=== PATIENT | male | born 1950 | race African-American/Black ===

== ENCOUNTER 2021-09-02 12:56 | Emergency (ER) | payer OTHER ==
--- OUTSIDE RECORDS SUMMARY | 2021-09-02 13:00 | XMS REPORT | Continuity of Care Document ---
:1950 Author Organization [facility] t Address [address] [place] [address] Care Team Providers Name Role Phone CRISTHIAN Attending Clinician Unavailable WANG Attending Clinician Unavailable Beverley RODRIGUEZ Attending Clinician Unavailable SHALOM Attending Clinician Unavailable GEMMA VALLADARES Attending Clinician Unavailable EMILY RIVER Attending Clinician Unavailable NEFTALI WOOD Attending Clinician Unavailable PETRA Admitting Clinician Unavailable SHALOM Admitting Clinician Unavailable GRECIA Admitting Clinician Unavailable LORIN BEASLEY Admitting Clinician Unavailable Payers Payer Name Policy Type Policy Number Effective Date Expiration Date S natalie WELLCARE/WELLCARE [id number] 2021 [facility]00 WELLCARE [facility] [id number] 2021 00:00:00 MEDICAID [place] [id number] 2020 00:00:00 Problems Condition Condition Condition Status Onset Resolution Last Treating Co mments Source Name Details Category Date Date Treatment Clinician Date Left Left Problem Active Central ventricula ventricula Ca re r r Communi hypertroph hypertroph ty y y [facility] Non Non Problem Active [facility] compliance compliance Ca re with with Communi medical medical ty treatment treatment [facility] History of History of Problem Active C entral stroke stroke Care with with Communi residual residual ty deficit deficit Health Center Chest pain Chest pain Problem Active C entral Care [facility] Tobacco Tobacco Problem Active [facility] Abuse Abuse Care Counseling Counseling Co mmuni ty [facility] GERD GERD Problem Active Central (gastroeso (gastroeso Ca re phageal phageal Communi reflux reflux ty disease) disease) [facility] Hypothyroi Hypothyroi Problem Active C entral dism dism Care [facility] Essential Essential Problem Active Shani tral hypertensi hypertensi Ca re on on [facility] Neuropathy Neuropathy Problem Active C entral Care [facility] Diabetes Diabetes Problem Active Centr al type 2, type 2, Care controlled [facility] of History of Problem Active C entral hyperlipid hyperlipid Ca re emia emia [facility] Iron Iron Problem Active Central deficiency deficiency Ca re anemia anemia [facility] Constipati Constipati Problem Active C entral on on Care [facility] Loss of Loss of Problem Active Central appetite appetite Care [facility] Allergies, Adverse Reactions, Alerts Allergy Allergy Status Severity Reaction(s) Onset Inactive Treating Comm ents Source Name Type Date Date Clinician NO KNOWN Allergy Active [facility] ALLERGIE S Medications Ordered Filled Start Stop Current Ordering Indication Dosage Frequency Signature Comments Components Source Medication Medication Date Date Medication? Clinician (SIG) Name Name Docusate Docusate Yes Mercedes 1 capsule Central Sodium Sodium 2- Anthony as needed Care 00:00: [facility] Ferrous Ferrous Yes Mercedes 1 tablet C entral Sulfate Sulfate -12 Anthony Care 00:00: [facility] Bromfed DM Bromfed DM 2017-08 Yes Mercedes 10 ml as Central 2-19 Anthony needed Care 00:00: [facility] Medrol Medrol 2017-08 Yes Mercedes as Central (Robert) (Robert) 2-19 Anthony directed Care 00:00: on pack [facility] Metformin Metformin 2017-08 Yes Mercedes 1 tablet Central HCl HCl 1-26 Anthony with meals Care 00:00: [facility] Gabapentin Gabapentin 2017-08 Yes Mercedes as Central 1-20 Anthony directed Care 00:00: [facility] Nicoderm CQ Nicoderm CQ 2017-08 Yes Mercedes 1 patch to Central 1-19 Anthony skin Care 00:00: [facility] Lisinopril- Lisinopril- Yes Mercedes 1 tablet Central Hydrochloro Hydrochloro Anthony Care thiazide thiazide [facility] Aspir-81 Aspir Yes Mercedes 1 tablet C entral Anthony Care [facility] Doc-Q-Lace Doc-Q-Lace Yes Merecdes not C entral Anthony defined Care [facility] Omeprazole Omeprazole Yes Mercedes 1 capsule [facility] Simvastatin Simvastatin Yes Mercedes 1 [facility] Meloxicam Meloxicam Yes Mercedes 1 tablet [facility] Xanax Xanax Yes Mercedes 1 tablet [facility] Levothyroxi Levothyroxi Yes Mercedes 1 Central ne Sodium ne Sodium Anthony Car e [facility] Procedures This patient has no known procedures. Encounters Start End Encounter Admission Attending Care Care Encounter Source Date/Time Date/Time Type Type Clinicians Facility Department ID 2021-07-30 Outpatient CRISTHIAN [facility] [id number] [place] 01:04:37 [facility] 2021-08-10 2021-08-11 Inpatient ER WANG, [facility] [id number] [facility] 20:29:00 16:35:00 MAUROALICIAG 2020-10-20 2020-10-21 Inpatient E SHALOM BL MED [id number] [facility]BL 19:30:00 16:20:00 [facility] 2020-05-05 2020-05-05 Emergency E BLAINE, [facility] [id number] [facility] 11:23:00 23:57:00 [facility] 2019-12-21 2019-12-22 Emergency E PERICO, HH [facility] [id number] [facility] 18:16:00 03:45:00 YESSICA 2019-02-28 2019-02-28 Outpatient [facility] [id number] [place] 08:24:00 08:24:00 Care Care Care Integrate Integrated [facility] 2019-02-09 2019-02-09 [facility] [id number] [facility] 10:55:00 10:55:00 2018-10-12 2018-10-12 Outpatient [facility] [id number] [place] 08:20:00 08:20:00 Care Care Care Integrate Integrated Com [facility] 2018-09-09 2018-09-09 Outpatient [facility] [id number] [place] 13:00:00 13:00:00 Care Care Care Integrate Integrated Com [facility] 2018-09-03 2018-09-03 Outpatient [facility] [id number] [facility] 10:00:00 10:00:00 Care Care [facility] 2018-08-28 2018-08-28 Outpatient [facility] [id number] Central 10:40:00 10:40:00 Care Care [facility] 2018-08-19 2018-08-19 Outpatient [facility] [id number] Central 13:40:00 13:40:00 Care Care Care Integrate Integrated [facility] 2018-08-04 2018-08-04 Outpatient [facility] Central [id number] Central 08:40:00 08:40:00 Care Care Care [facility]ate Integrated [facility] 2018-07-12 2018-07-12 Outpatient [place] Central [id number] Central 08:40:00 08:40:00 Care Care [facility] Integrated [facility] 2018-07-06 2018-07-06 Outpatient [place] Central [id number] [place] 11:20:00 11:20:00 Care Care Care Integrate Integrated [facility] 2018-07-05 2018-07-05 Outpatient [place] Central [id number] Central 09:17:00 09:17:00 Care Care Care Integrate Integrated [facility] 2018-07-05 2018-07-05 Outpatient [place] Central [id number] Central 08:20:00 08:20:00 Care Care [facility] Integrated [facility] 2018-06-28 2018-06-28 Outpatient [place] Central [id number] Central 09:00:00 09:00:00 Care Care [facility] Results Test Description Test Time Test Comments Results Result Comments Source HEPATIC FUNCTION PANEL 2021-08-11 09:55:19 Test Item Value Reference Range Interpretation Comme nts TOTAL PROTEIN (BEAKER) (test code = 770) 7.4 gm/dL 6.0-8.3 ALBUMIN (BEAKER) (test code = 1145) 3.5 g/dL 3.5-5.0 BILIRUBIN TOTAL (BEAKER) (test code = 377) 0.7 mg/dL 0.2-1.2 BILIRUBIN DIRECT (BEAKER) (test code = 706) 0.4 mg/dL 0.1-0.5 ALKALINE PHOSPHATASE (BEAKER) (test code = 346) 62 U/L 40-150 AST (SGOT) (BEAKER) (test code = 353) 12 U/L 5-34 ALT (SGPT) (BEAKER) (test code = 347) < U/L 6-55 L [facility] ID - DBHIGH SENSITIVITY TROPONIN [id number] 09:51:42 Test Item Value Reference Range Interpretation Comments HIGH SENSITIVITY 7 pg/ml See_Comment [Automated message] TROPONIN I (test code = The system which [id number]) generated this result transmitted ref erence range: <=35. Th e reference range was not used to interpr et this result as normal/abnormal . [facility] ID - DBThe CRADLE PLACER STAT High Sensitivity Troponin-I results should be used in conjunctionwith other diagnostic information such as ECG, clinical observations and information, and patient symptoms to aid in the diagnosis of SD.BASIC METABOLIC [id number] 09:45:58 Test Item Value Reference Range Interpretation Comments SODIUM (BEAKER) 135 meq/L 136-145 L (test code = 381) POTASSIUM (BEAKER) 4.0 meq/L 3.5-5.1 (test code = 379) CHLORIDE (BEAKER) 107 meq/L 98-107 (test code = 382) CO2 (BEAKER) (test 21 meq/L 22-29 L code = 355) BLOOD UREA NITROGEN 8 mg/dL 7-21 (BEAKER) (test code = 354) CREATININE (BEAKER) 0.91 mg/dL 0.57-1.25 (test code = 358) GLUCOSE RANDOM 141 mg/dL 70-105 H (BEAKER) (test code = 652) CALCIUM (BEAKER) 8.8 mg/dL 8.4-10.2 (test code = 697) EGFR (BEAKER) (test 100 mL/min/1.73 ESTIM ATED GFR IS code = 1092) sq m NOT ACCURATE CREATININE CLEARANCE IN PREDICTING GLOMERULAR FILTRATION RATE . ESTIMATED GFR I S NOT APPLICABLE FOR DIALYSIS PATIEN TS. [facility] Techn[facility] ID - DBPROTHROMBIN TIME/[id number] 09:42:44 Test Item Value Reference Range Interpretation Comments PROTIME (BEAKER) 14.9 seconds 11.9-14.2 H (test code = 759) INR (BEAKER) (test 1.19 See_Comment [Automat ed message] code = 370) The system [employer] generated this result transmitted ref erence range: <=5.90. The reference range was not used to int erpret this result as normal/abnormal . RECOMMENDED COUMADIN/WARFARIN INR THERAPY RANGESSTANDARD DOSE: 2.0 - 3.0 Includes: PROPHYLAXIS forvenous thrombosis, systemic embolization; TREATMENT for venous thrombosis and/or pulmonary embolus.HIGH RISK: Target INR is 2.5-3.5 for patients with mechanical heart valves.CBC W/PLT COUNT & AUTO DIFFERENTIAL 2021-08-11 09:41:41 Test Item Value Reference Range Interpretation Comments WHITE BLOOD CELL COUNT (BEAKER) 7.8 K/ L 3.5-10.5 (test code = 775) RED BLOOD CELL COUNT (BEAKER) 3.84 M/ L 4.63-6.08 L (test code = 761) HEMOGLOBIN (BEAKER) (test code = 7.4 GM/DL 13.7-17.5 L 410) HEMATOCRIT (BEAKER) (test code = 27.2 % 40.1-51.0 L 411) MEAN CORPUSCULAR VOLUME (BEAKER) 70.8 fL 79.0-92.2 L (test code = 753) MEAN CORPUSCULAR HEMOGLOBIN 19.3 pg 25.7-32.2 L (BEAKER) (test code = 751) MEAN CORPUSCULAR HEMOGLOBIN CONC 27.2 GM/DL 32.3-36.5 L (BEAKER) (test code = 752) RED CELL DISTRIBUTION WIDTH 25.4 % 11.6-14.4 H (BEAKER) (test code = 412) PLATELET COUNT (BEAKER) (test 418 K/CU MM 150-450 code = 756) MEAN PLATELET VOLUME (BEAKER) 8.9 fL 9.4-12.4 L (test code = 754) NUCLEATED RED BLOOD CELLS 0 /100 WBC 0-0 (BEAKER) (test code = 413) NEUTROPHILS RELATIVE PERCENT 60 % (BEAKER) (test code = 429) LYMPHOCYTES RELATIVE PERCENT 25 % (BEAKER) (test code = 430) MONOCYTES RELATIVE PERCENT 7 % (BEAKER) (test code = 431) EOSINOPHILS RELATIVE PERCENT 7 % (BEAKER) (test code = 432) BASOPHILS RELATIVE PERCENT 1 % (BEAKER) (test code = 437) NEUTROPHILS ABSOLUTE COUNT 4.67 K/ L 1.78-5.38 (BEAKER) (test code = 670) LYMPHOCYTES ABSOLUTE COUNT 1.98 K/ L 1.32-3.57 (BEAKER) (test code = 414) MONOCYTES ABSOLUTE COUNT (BEAKER) 0.56 K/ L 0.30-0.82 (test code = 415) EOSINOPHILS ABSOLUTE COUNT 0.51 K/ L 0.04-0.54 (BEAKER) (test code = 416) BASOPHILS ABSOLUTE COUNT (BEAKER) 0.07 K/ L 0.01-0.08 (test code = 417) IMMATURE GRANULOCYTES-RELATIVE 0 % 0-1 PERCENT (BEAKER) (test code = 2801) IRON, TIBC, % SAT. (WITHOUT FERRITIN)2021-08-10 23:28:47 Test Item Value Reference Range Interpretation Comments IRON (BEAKER) (test code = 547) 31.0 ug/dL 40.0-160.0 L TOTAL IRON BINDING CAPACITY 388 ug/dL 250-450 (BEAKER) (test code = 769) IRON % SATURATION (2) (BEAKER) 8 % 20-55 L (test code = 2590) [facility] ID - DBHIGH SENSITIVITY TROPONIN [id number] 23:05:24 Test Item Value Reference Range Interpretation Comments HIGH SENSITIVITY 5 pg/ml See_Comment [Automated message] TROPONIN I (test code = The system which [id number]) generated this result transmitted ref erence range: <=35. Th e reference range was not used to interpr et this result as normal/abnormal . [facility] ID - DBThe CRADLE PLACER STAT High Sensitivity Troponin-I results should be used in conjunctionwith other diagnostic information such as ECG, clinical observations and information, and patient symptoms to aid in the diagnosis of SD.HEMOGLOBIN AND [id number] 22:41:03 Test Item Value Reference Range Interpretation Comments HEMOGLOBIN (BEAKER) (test code = 6.2 GM/DL 13.7-17.5 L 410) HEMATOCRIT (BEAKER) (test code = 22.9 % 40.1-51.0 L 411) [facility] ID - [id number]-GLUCOSE [id number] 08:32:00 Test Item Value Reference Range Interpretation Comments POC-GLUCOSE METER 106 mg/dL 70-110 : TESTED A T [facility] 6720 (BEAKER) (test code = CE [address] [place], 1538) [address]: [facility] Technicians/Techni andrés ID = [id number] for ARCHANA COLORADO [id number] 07:02:00 Test Item Value Reference Range Interpretation Comments PHOSPHORUS (BEAKER) (test code = 2.5 mg/dL 2.3-4.7 604) [id number] 07:02:00 Test Item Value Reference Range Interpretation Comments MAGNESIUM (BEAKER) (test code = 1.9 mg/dL 1.6-2.6 627) BASIC METABOLIC [id number] 07:02:00 Test Item Value Reference Range Interpretation Comments SODIUM (BEAKER) 134 meq/L 136-145 L (test code = 381) POTASSIUM (BEAKER) 4.0 meq/L 3.5-5.1 (test code = 379) CHLORIDE (BEAKER) 104 meq/L 98-107 (test code = 382) CO2 (BEAKER) (test 24 meq/L 22-29 code = 355) BLOOD UREA NITROGEN 16 mg/dL 7-21 (BEAKER) (test code = 354) CREATININE (BEAKER) 1.05 mg/dL 0.57-1.25 (test code = 358) GLUCOSE RANDOM 118 mg/dL 70-105 H (BEAKER) (test code = 652) CALCIUM (BEAKER) 9.2 mg/dL 8.4-10.2 (test code = 697) EGFR (BEAKER) (test 85 mL/min/1.73 ESTIMA GAY GFR IS code = 1092) sq m NOT ACCURATE CREATININE CLEARANCE IN PREDICTING GLOMERULAR FILTRATION RATE . ESTIMATED GFR I S NOT APPLICABLE FOR DIALYSIS PATIEN TS. CBC W/PLT COUNT & AUTO [id number] 05:18:00 Test Item Value Reference Range Interpretation Comments WHITE BLOOD CELL COUNT (BEAKER) 8.0 K/ L 3.5-10.5 (test code = 775) RED BLOOD CELL COUNT (BEAKER) 4.68 M/ L 4.63-6.08 (test code = 761) HEMOGLOBIN (BEAKER) (test code = 9.1 GM/DL 13.7-17.5 L 410) HEMATOCRIT (BEAKER) (test code = 31.8 % 40.1-51.0 L 411) MEAN CORPUSCULAR VOLUME (BEAKER) 67.9 fL 79.0-92.2 L (test code = 753) MEAN CORPUSCULAR HEMOGLOBIN 19.4 pg 25.7-32.2 L (BEAKER) (test code = 751) MEAN CORPUSCULAR HEMOGLOBIN CONC 28.6 GM/DL 32.3-36.5 L (BEAKER) (test code = 752) RED CELL DISTRIBUTION WIDTH 25.4 % 11.6-14.4 H (BEAKER) (test code = 412) PLATELET COUNT (BEAKER) (test 552 K/CU MM 150-450 H code = 756) MEAN PLATELET VOLUME (BEAKER) 8.7 fL 9.4-12.4 L (test code = 754) NUCLEATED RED BLOOD CELLS 0 /100 WBC 0-0 (BEAKER) (test code = 413) NEUTROPHILS RELATIVE PERCENT 41 % (BEAKER) (test code = 429) LYMPHOCYTES RELATIVE PERCENT 36 % (BEAKER) (test code = 430) MONOCYTES RELATIVE PERCENT 9 % (BEAKER) (test code = 431) EOSINOPHILS RELATIVE PERCENT 12 % (BEAKER) (test code = 432) BASOPHILS RELATIVE PERCENT 1 % (BEAKER) (test code = 437) NEUTROPHILS ABSOLUTE COUNT 3.28 K/ L 1.78-5.38 (BEAKER) (test code = 670) LYMPHOCYTES ABSOLUTE COUNT 2.87 K/ L 1.32-3.57 (BEAKER) (test code = 414) MONOCYTES ABSOLUTE COUNT (BEAKER) 0.69 K/ L 0.30-0.82 (test code = 415) EOSINOPHILS ABSOLUTE COUNT 0.99 K/ L 0.04-0.54 H (BEAKER) (test code = 416) BASOPHILS ABSOLUTE COUNT (BEAKER) 0.11 K/ L 0.01-0.08 H (test code = 417) IMMATURE GRANULOCYTES-RELATIVE 0 % 0-1 PERCENT (BEAKER) (test code = 2801) POCT-GLUCOSE [id number] 22:13:00 Test Item Value Reference Range Interpretation Comments POC-GLUCOSE METER 129 mg/dL 70-110 H : TESTED A T [facility] 6720 (BEAKER) (test code = CE Brown [place], 1538) [address]: [facility] Technicians/Techni andrés ID = [id number] for Katie Palacios POCT-GLUCOSE [id number] 12:48:00 Test Item Value Reference Range Interpretation Comments POC-GLUCOSE METER 135 mg/dL 70-110 H : [facility] (BE[facility]ER) (test code = CE Brown [facility], 1538) 012[address]: Medical Laboratory Technicians/Techni andrés ID = [id number] for NOEL MCFARLANE HEMOGLOBIN [id number] 12:15:00 Test Item Value Reference Range Interpretation Comments HEMOGLOBIN A1C (BEAKER) (test code = 6.0 % 4.3-6.1 368) TROPONIN [id number] 07:22:00 Test Item Value Reference Range Interpretation Comments TROPONIN I (BEAKER) (test code = 397) < ng/mL 0.00-0.03 Troponin I (TnI) levels must be interpreted in the context of the presenting symptoms and the clinical findings. Elevated TnI levels indicate myocardial damage, but are not specific for ischemic heart disease. Elevated TnI levels are seen in patients with other cardiac conditions (including myocarditis and congestive heart failure), and slight TnI elevations occur in patients with other conditions, including sepsis, renal failure, acidosis, acute neurological disease, and persistent tachyarrhythmia.[id number] 07:16:00 Test Item Value Reference Range Interpretation Comments PHOSPHORUS (BEAKER) (test code = 2.8 mg/dL 2.3-4.7 604) [id number] 07:16:00 Test Item Value Reference Range Interpretation Comments MAGNESIUM (BEAKER) (test code = 1.9 mg/dL 1.6-2.6 627) BASIC METABOLIC [id number] 07:16:00 Test Item Value Reference Range Interpretation Comments SODIUM (BEAKER) 135 meq/L 136-145 L (test code = 381) POTASSIUM (BEAKER) 4.1 meq/L 3.5-5.1 (test code = 379) CHLORIDE (BEAKER) 104 meq/L 98-107 (test code = 382) CO2 (BEAKER) (test 26 meq/L 22-29 code = 355) BLOOD UREA NITROGEN 18 mg/dL 7-21 (BEAKER) (test code = 354) CREATININE (BEAKER) 1.04 mg/dL 0.57-1.25 (test code = 358) GLUCOSE RANDOM 97 mg/dL 70-105 (BEAKER) (test code = 652) CALCIUM (BEAKER) 9.1 mg/dL 8.4-10.2 (test code = 697) EGFR (BEAKER) (test 86 mL/min/1.73 ESTIMA GAY GFR IS code = 1092) sq m NOT ACCURATE CREATININE CLEARANCE IN PREDICTING GLOMERULAR FILTRATION RATE . ESTIMATED GFR I S NOT APPLICABLE FOR DIALYSIS PATIEN TS. LIPID [id number] 07:16:00 Test Item Value Reference Range Interpretation Comments TRIGLYCERIDES (BEAKER) (test code = 66 mg/dL 540) CHOLESTEROL (BEAKER) (test code = 105 mg/dL 631) HDL CHOLESTEROL (BEAKER) (test code 36 mg/dL = 976) LDL CHOLESTEROL CALCULATED (BEAKER) 56 mg/dL (test code = 633) Triglyceride Reference Range: Low Risk <150 Borderline 150-199 High Risk 200-499 Very High Risk >=500Cholesterol Reference Range: Low Risk <200 Borderline 200-239 High Risk >240HDL Cholesterol Reference Range: Low Risk >=60 High Risk <40LDL Cholesterol Reference Range: Optimal <100 Near Optimal 100-129 Borderline 130-159 High 160-189 Very High >=190CBC W/PLT COUNT & AUTO [id number] 07:03:00 Test Item Value Reference Range Interpretation Comments WHITE BLOOD CELL COUNT (BEAKER) 8.6 K/ L 3.5-10.5 (test code = 775) RED BLOOD CELL COUNT (BEAKER) 3.97 M/ L 4.63-6.08 L (test code = 761) HEMOGLOBIN (BEAKER) (test code = 6.9 GM/DL 13.7-17.5 L 410) HEMATOCRIT (BEAKER) (test code = 25.4 % 40.1-51.0 L 411) MEAN CORPUSCULAR VOLUME (BEAKER) 64.0 fL 79.0-92.2 L (test code = 753) MEAN CORPUSCULAR HEMOGLOBIN 17.4 pg 25.7-32.2 L (BEAKER) (test code = 751) MEAN CORPUSCULAR HEMOGLOBIN CONC 27.2 GM/DL 32.3-36.5 L (BEAKER) (test code = 752) RED CELL DISTRIBUTION WIDTH 24.0 % 11.6-14.4 H (BEAKER) (test code = 412) PLATELET COUNT (BEAKER) (test 591 K/CU MM 150-450 H code = 756) MEAN PLATELET VOLUME (BEAKER) 8.6 fL 9.4-12.4 L (test code = 754) NUCLEATED RED BLOOD CELLS 0 /100 WBC 0-0 (BEAKER) (test code = 413) NEUTROPHILS RELATIVE PERCENT 51 % (BEAKER) (test code = 429) LYMPHOCYTES RELATIVE PERCENT 30 % (BEAKER) (test code = 430) MONOCYTES RELATIVE PERCENT 8 % (BEAKER) (test code = 431) EOSINOPHILS RELATIVE PERCENT 10 % (BEAKER) (test code = 432) BASOPHILS RELATIVE PERCENT 1 % (BEAKER) (test code = 437) NEUTROPHILS ABSOLUTE COUNT 4.36 K/ L 1.78-5.38 (BEAKER) (test code = 670) LYMPHOCYTES ABSOLUTE COUNT 2.55 K/ L 1.32-3.57 (BEAKER) (test code = 414) MONOCYTES ABSOLUTE COUNT (BEAKER) 0.64 K/ L 0.30-0.82 (test code = 415) EOSINOPHILS ABSOLUTE COUNT 0.89 K/ L 0.04-0.54 H (BEAKER) (test code = 416) BASOPHILS ABSOLUTE COUNT (BEAKER) 0.09 K/ L 0.01-0.08 H (test code = 417) IMMATURE GRANULOCYTES-RELATIVE 0 % 0-1 PERCENT (BEAKER) (test code = 2801) TROPONIN [id number] 21:59:00 Test Item Value Reference Range Interpretation Comments TROPONIN I (BEAKER) (test code = 397) < ng/mL 0.00-0.03 Troponin I (TnI) levels must be interpreted in the context of the presenting symptoms and the clinical findings. Elevated TnI levels indicate myocardial damage, but are not specific for ischemic heart disease. Elevated TnI levels are seen in patients with other cardiac conditions (including myocarditis and congestive heart failure), and slight TnI elevations occur in patients with other conditions, including sepsis, renal failure, acidosis, acute neurological disease, and persistent tachyarrhythmia.POCT-GLUCOSE [id number] 21:34:00 Test Item Value Reference Range Interpretation Comments POC-GLUCOSE METER 131 mg/dL 70-110 H : TESTED A T [facility] 6720 (BEAKER) (test code = CE [place], 1538) [id number]: Medical Laboratory Technicians/Techni andrés ID = [id number] for Liliana Gutiérrez [id number] 15:58:00 Test Item Value Reference Range Interpretation Comments FERRITIN (BEAKER) (test code = 361) < ng/mL 5-275 L VITAMIN B12 AND [id number] 15:57:00 Test Item Value Reference Range Interpretation Comments VITAMIN B12 (BEAKER) (test code = 250 pg/mL 213-816 774) FOLATE (BEAKER) (test code = 362) 6.9 ng/mL >=7.0 L IRON, TIBC, % SAT. (WITHOUT FERRITIN)2019-07-21 15:28:00 Test Item Value Reference Range Interpretation Comments IRON (BEAKER) (test code = 547) 11.0 ug/dL 40.0-160.0 L TOTAL IRON BINDING CAPACITY 450 ug/dL 250-450 (BEAKER) (test code = 769) IRON % SATURATION (2) (BEAKER) 2 % 20-55 L (test code = 2590) LACTATE DEHYDROGENASE (LDH)2019-07-21 15:21:00 Test Item Value Reference Range Interpretation Comments LACTATE DEHYDROGENASE (BEAKER) (test 285 U/L 125-220 H code = 635) HEPATIC FUNCTION [id number] 15:21:00 Test Item Value Reference Range Interpretation Comments TOTAL PROTEIN (BEAKER) (test code = 8.0 gm/dL 6.0-8.3 770) ALBUMIN (BEAKER) (test code = 1145) 4.0 g/dL 3.5-5.0 BILIRUBIN TOTAL (BEAKER) (test code 0.3 mg/dL 0.2-1.2 = 377) BILIRUBIN DIRECT (BEAKER) (test 0.1 mg/dL 0.1-0.5 code = 706) ALKALINE PHOSPHATASE (BEAKER) (test 67 U/L 40-150 code = 346) AST (SGOT) (BEAKER) (test code = 22 U/L 5-34 353) ALT (SGPT) (BEAKER) (test code = 10 U/L 6-55 347) B-TYPE NATRIURETIC FACTOR (BNP)2019-07-21 13:55:00 Test Item Value Reference Range Interpretation Comments B-TYPE NATRIURETIC PEPTIDE (BEAKER) 14 pg/mL 0-100 (test code = 700) TROPONIN [id number] 13:55:00 Test Item Value Reference Range Interpretation Comments TROPONIN I (BEAKER) (test code = 397) < ng/mL 0.00-0.03 Troponin I (TnI) levels must be interpreted in the context of the presenting symptoms and the clinical findings. Elevated TnI levels indicate myocardial damage, but are not specific for ischemic heart disease. Elevated TnI levels are seen in patients with other cardiac conditions (including myocarditis and congestive heart failure), and slight TnI elevations occur in patients with other conditions, including sepsis, renal failure, acidosis, acute neurological disease, and persistent tachyarrhythmia.[id number] 13:48:00 Test Item Value Reference Range Interpretation Comments MAGNESIUM (BEAKER) (test code = 2.0 mg/dL 1.6-2.6 627) BASIC METABOLIC [id number] 13:48:00 Test Item Value Reference Range Interpretation Comments SODIUM (BEAKER) 136 meq/L 136-145 (test code = 381) POTASSIUM (BEAKER) 4.1 meq/L 3.5-5.1 (test code = 379) CHLORIDE (BEAKER) 104 meq/L 98-107 (test code = 382) CO2 (BEAKER) (test 24 meq/L 22-29 code = 355) BLOOD UREA NITROGEN 19 mg/dL 7-21 (BEAKER) (test code = 354) CREATININE (BEAKER) 1.63 mg/dL 0.57-1.25 H (test code = 358) GLUCOSE RANDOM 115 mg/dL 70-105 H (BEAKER) (test code = 652) CALCIUM (BEAKER) 9.3 mg/dL 8.4-10.2 (test code = 697) EGFR (BEAKER) (test 51 mL/min/1.73 ESTIMA GAY GFR IS code = 1092) sq m NOT ACCURATE CREATININE CLEARANCE IN PREDICTING GLOMERULAR FILTRATION RATE . ESTIMATED GFR I S NOT APPLICABLE FOR DIALYSIS PATIEN TS. CBC W/PLT COUNT & AUTO [id number] 13:47:00 Test Item Value Reference Range Interpretation Comments WHITE BLOOD CELL COUNT (BEAKER) 8.9 K/ L 3.5-10.5 (test code = 775) RED BLOOD CELL COUNT (BEAKER) 3.45 M/ L 4.63-6.08 L (test code = 761) HEMOGLOBIN (BEAKER) (test code = 5.2 GM/DL 13.7-17.5 LL 410) HEMATOCRIT (BEAKER) (test code = 21.0 % 40.1-51.0 L 411) MEAN CORPUSCULAR VOLUME (BEAKER) 60.9 fL 79.0-92.2 L (test code = 753) MEAN CORPUSCULAR HEMOGLOBIN 15.1 pg 25.7-32.2 L (BEAKER) (test code = 751) MEAN CORPUSCULAR HEMOGLOBIN CONC 24.8 GM/DL 32.3-36.5 L (BEAKER) (test code = 752) RED CELL DISTRIBUTION WIDTH 21.3 % 11.6-14.4 H (BEAKER) (test code = 412) PLATELET COUNT (BEAKER) (test 664 K/CU MM 150-450 H code = 756) MEAN PLATELET VOLUME (BEAKER) 8.6 fL 9.4-12.4 L (test code = 754) NUCLEATED RED BLOOD CELLS 0 /100 WBC 0-0 (BEAKER) (test code = 413) NEUTROPHILS RELATIVE PERCENT 57 % (BEAKER) (test code = 429) LYMPHOCYTES RELATIVE PERCENT 27 % (BEAKER) (test code = 430) MONOCYTES RELATIVE PERCENT 7 % (BEAKER) (test code = 431) EOSINOPHILS RELATIVE PERCENT 8 % (BEAKER) (test code = 432) BASOPHILS RELATIVE PERCENT 1 % (BEAKER) (test code = 437) NEUTROPHILS ABSOLUTE COUNT 5.03 K/ L 1.78-5.38 (BEAKER) (test code = 670) LYMPHOCYTES ABSOLUTE COUNT 2.41 K/ L 1.32-3.57 (BEAKER) (test code = 414) MONOCYTES ABSOLUTE COUNT (BEAKER) 0.66 K/ L 0.30-0.82 (test code = 415) EOSINOPHILS ABSOLUTE COUNT 0.71 K/ L 0.04-0.54 H (BEAKER) (test code = 416) BASOPHILS ABSOLUTE COUNT (BEAKER) 0.07 K/ L 0.01-0.08 (test code = 417) IMMATURE GRANULOCYTES-RELATIVE 0 % 0-1 PERCENT (BEAKER) (test code = 2801) RAD, CHEST, 1 VIEW, NON [id number] 13:47:00Reason for exam:->chest pain FINAL REPORT INDICATION: chest pain COMPARISON: None TECHNIQUE: Single frontal view of the chest. FINDINGS: Lungs and pleura: Clear lungs. No effusion.Heart and mediastinum: Normal heart size. Unremarkable mediastinal contours.Osseous structures: No acute abnormality.Other: None. IMPRESSION: No acute intrathoracic abnormality. Signed: JR Comer Robert MDReport VerifiedDate/Time: 07/21/2019 13:47:00 Reading Location: [facility] Radiology Reading Room
[2021-09-02] MEDS ORDERED: NA CHLORIDE 0.9% 1,000 ML ONE (16:11)
--- NOTE | 2021-09-02 16:11 | RAD REPORT ---
EXAM DESCRIPTION: RAD - Chest Single View - 09/02/2021 3:49 pm CLINICAL HISTORY: COUGH COMPARISON: Portable 08/10/2021 TECHNIQUE: AP portable chest image was obtained 09/02/2021 3:49 pm . FINDINGS: No dense mass or consolidation. Interstitial pattern is prominent but not clearly differen t. Heart and vasculature are normal. No pneumothorax is present. Right costophrenic angle blunting is seen, possibly minimal pleural effusion. No acute bony abnormality seen. No acute aortic findings james spected. IMPRESSION: Patient may have a minimal right-sided pleural effusion. Interstitial pattern is mildly prominent but not clearly different from comparison.
[2021-09-02 16:15] LABS: Absolute Lymphocytes (CBC) 3.4 K/uL (0.7-4.9); Hematocrit 23.5 % (39.6-49.0); Lymphocytes % 29.8 % (15.3-44.8); MPV 6.3 fL (7.6-11.3); RBC Red Blood Cell Count 3.54 M/uL (4.33-5.43)
[2021-09-02 16:42] LABS: Albumin 3.1 g/dL (3.4-5.0); Bilirubin Total 0.2 mg/dL (0.2-1.0); Potassium 3.7 mmol/L (3.5-5.1); Protein, Total 8.9 g/dL (6.4-8.2)
--- NOTE | 2021-09-02 17:04 | EDPHYS ---
Physician Documentation [facility] Name: German Arnold Age: 71 yrs Sex: Male : 1950 Arrival Date: 09/02/2021 Time: 13:00 Bed 15 Private MD: ED Physician David Luna HPI: 09/02 16:04 This 71 yrs old Black Male presents to ER via Ambulatory with complaints of blood larry transfusion. 16:04 The patient presents to the emergency department with rectal bleeding, bright red blood larry with bowel movement. Onset: The symptoms/episode began/occurred 3 month(s) ago. Abdominal pain: none is appreciated. Modifying factors: The symptoms are alleviated by nothing, the symptoms are aggravated by nothing. known colon cancer. Associated signs and symptoms: Pertinent positives: dizziness at rest, Pertinent negatives: chest pain. Severity of symptoms: At their worst the symptoms were mild in the emergency department the symptoms are unchanged. The patient has experienced similar episodes in the past, several times. Historical: - Allergies: 14:33 No Known Allergies; vg1 - PMHx: 14:33 Hypertensive disorder; Gout; Hypercholesterolemia; Hypothyroidism; vg1 - Immunization history:: Client reports receiving the 2nd dose of the Covid vaccine. - Social history:: Smoking status: Patient reports the use of cigarette tobacco products, smokes one pack cigarettes per day. - Family history:: not pertinent. ROS: 16:04 Constitutional: Negative for fever, chills, and weight loss, Eyes: Negative for injury, larry pain, redness, and discharge, ENT: Negative for injury, pain, and discharge, Neck: Negative for injury, pain, and swelling, Cardiovascular: Negative for chest pain, palpitations, and edema, Respiratory: Negative for shortness of breath, cough, wheezing, and pleuritic chest pain, Back: Negative for injury and pain, : Negative for injury, bleeding, discharge, and swelling, MS/Extremity: Negative for injury and deformity, Skin: Negative for injury, rash, and discoloration, Psych: Negative for depression, anxiety, suicide ideation, homicidal ideation, and hallucinations, Allergy/Immunology: Negative for hives, rash, and allergies, Endocrine: Negative for neck swelling, polydipsia, polyuria, polyphagia, and marked weight changes, Hematologic/Lymphatic: Negative for swollen nodes, abnormal bleeding, and unusual bruising. 16:04 Abdomen/GI: Positive for rectal bleeding. 16:04 Neuro: Positive for weakness. Exam: 16:04 Constitutional: This is a well developed, well nourished patient who is awake, alert, larry and in no acute distress. Head/Face: Normocephalic, atraumatic. Eyes: Pupils equal round and reactive to light, extra-ocular motions intact. Lids and lashes normal. Conjunctiva and sclera are non-icteric and not injected. Cornea within normal limits. Periorbital areas with no swelling, redness, or edema. ENT: Nares patent. No nasal discharge, no septal abnormalities noted. Tympanic membranes are normal and external auditory canals are clear. Oropharynx with no redness, swelling, or masses, exudates, or evidence of obstruction, uvula midline. Mucous membranes moist. Neck: Trachea midline, no thyromegaly or masses palpated, and no cervical lymphadenopathy. Supple, full range of motion without nuchal rigidity, or vertebral point tenderness. No Meningismus. Chest/axilla: Normal chest wall appearance and motion. Nontender with no deformity. No lesions are appreciated. Cardiovascular: Regular rate and rhythm with a normal S1 and S2. No gallops, murmurs, or rubs. Normal PMI, no JVD. No pulse deficits. Respiratory: Lungs have equal breath sounds bilaterally, clear to auscultation and percussion. No rales, rhonchi or wheezes noted. No increased work of breathing, no retractions or nasal flaring. Abdomen/GI: Soft, non-tender, with normal bowel sounds. No distension or tympany. No guarding or rebound. No evidence of tenderness throughout. Back: No spinal tenderness. No costovertebral tenderness. Full range of motion. Male : Normal genitalia with no discharge or lesions. MS/ Extremity: Pulses equal, no cyanosis. Neurovascular intact. Full, normal range of motion. Neuro: Awake and alert, GCS 15, oriented to person, place, time, and situation. Cranial nerves II-XII grossly intact. Motor strength 5/5 in all extremities. Sensory grossly intact. Cerebellar exam normal. Normal gait. Psych: Awake, alert, with orientation to person, place and time. Behavior, mood, and affect are within normal limits. 16:04 Skin: Appearance: Color: pale, abscess, not appreciated, cellulitis, is not appreciated, induration, is not appreciated, injury, is not appreciated. 16:04 Neuro: Orientation: is normal, appropriate for stated age, no acute changes, Mentation: appropriate for stated age, no acute changes, responsive to voice Memory: is normal, appropriate for stated age, no acute changes, Cranial nerves: grossly normal, is grossly normal based on the patient's age, no acute changes, Cerebellar function: is grossly normal, is grossly normal based on the patient's age, no acute changes, Motor: is normal, is grossly normal based on the patient's age, no acute changes, moves all fours, strength is 5/5 in all extremities, Sensation: no obvious gross deficits, appropriate no acute changes, Gait: not tested. Deep tendon reflexes are 2+ (normal) in the bilateral brachioradialis, bicep, tricep and patellar and Achilles tendons, Babinski testing is normal, seizure activity, is not displayed by the patient. Vital Signs: 14:26 BP 133 / 73; Pulse 80; Resp 16; Temp 97.5; Pulse Ox 100% ; Height 5 ft. 9 in. (175.26 vg1 cm); Pain 0/10; MDM: 15:[address] [facility] 16:10 Differential diagnosis: gastritis, diverticulitis. Data reviewed: vital signs, nurses [facility] notes, lab test result(s), EKG, radiologic studies, plain films. Data interpreted: athletic monitor: rate is 80 beats/min, rhythm is regular, Pulse oximetry: on room air is 100 %. Test interpretation: by ED physician or midlevel provider: plain radiologic studies. Counseling: I had a detailed discussion with the patient and/or guardian regarding: the historical points, exam findings, and any diagnostic results supporting the discharge/admit diagnosis, lab results, radiology results, the need for outpatient follow up, for definitive care, a general surgeon, an civil cad designer. 09/02 15:32 Order name: CBC with Diff [facility] 09/02 15:32 Order name: Comprehensive Metabolic Panel; Complete Time: 16:55 [facility] 09/02 15:32 Order name: PRBC [facility] 09/02 15:35 Order name: ABO/RH typing [facility] 09/02 15:35 Order name: Antibody Screen [facility] 09/02 15:32 Order name: Chest Single View XRAY; Complete Time: 16:55 [facility] 09/02 15:32 Order name: Transfuse; Complete Time: 18:40 larry 09/02 20:24 Order name: CBC Smear Scan EDMS Administered Medications: 16:55 Drug: NS 0.9% 1000 ml Route: IV; Rate: 75 ml/hr; Site: right forearm; speedy 09/03 01:00 Follow up: Response: No adverse reaction; IV Status: Infusion continued upon admission; vc1 IV Intake: 800ml Disposition Summary: 09/02/21 17:03 Discharge Ordered Location: Home larry Problem: new larry Symptoms: have improved larry Condition: Stable larry Diagnosis - GI Bleed/ Gastrointestinal hemorrhage, unspecified larry - Weakness larry - Anemia, unspecified larry - Pleural effusion, not elsewhere classified larry Followup: larry - With: Private Physician - When: 2 - 3 days - Reason: Recheck today's complaints, Continuance of care, Re-evaluation by your physician Discharge Instructions: - Discharge Summary Sheet larry - Anemia larry - Blood Transfusion, Adult larry - Gastrointestinal Bleeding larry - Rectal Bleeding larry - Pleural Effusion larry - Weakness larry - Fatigue larry - Weakness, Fese-yg-Abio larry - Blood Transfusion, Adult, Care After, [id number] larry - Blood Transfusion, Adult, Care After larry Forms: - Medication Reconciliation Form larry - Thank You Letter larry - Antibiotic Education larry - Prescription Opioid Use larry Signatures: Dispatcher [employer] EDMS David Luna MD MD cha Garcia, Victoria, RN RN vg1 Rosaura Garay RN RN Lilly Tai RN vc1 Corrections: (The following items were deleted from the chart) 09/02 15:50 15:33 TYPE AND SCREEN+[id number].LAB.BRZ ordered. EDMS EDMS
--- NOTE | 2021-09-02 17:04 | ER ---
Nurse's Notes [facility] Name: German Arnold Age: 71 yrs Sex: Male : 1950 Arrival Date: 09/02/2021 Time: 13:00 Bed 15 Private MD: Diagnosis: GI Bleed/ Gastrointestinal hemorrhage, unspecified;Weakness;Anemia, unspecified;Pleural effusion, not elsewhere classified Presentation: 09/02 14:26 Chief complaint: Patient states: states Dr Interiano sent to ED to get a blood vg1 transfusion due to 'low blood'. Coronavirus screen: Vaccine status: Patient reports receiving the 2nd dose of the covid vaccine. Client denies travel out of the [place] in the last 14 days. Ebola Screen: Patient negative for fever greater than or equal to 101.5 degrees Fahrenheit, and additional compatible Ebola Virus Disease symptoms. Initial Sepsis Screen: Does the patient meet any 2 criteria? No. Patient's initial sepsis screen is negative. Does the patient have a suspected source of infection? No. Patient's initial sepsis screen is negative. Risk Assessment: Do you want to hurt yourself or someone else? Patient reports no desire to harm self or others. Onset of symptoms was September 02, 2021. 14:26 Method Of Arrival: Ambulatory vg1 14:26 Acuity: VELASQUEZ 3 vg1 Triage Assessment: 14:33 General: Appears in no apparent distress. comfortable, Behavior is calm, cooperative. vg1 Pain: Denies pain. Cardiovascular: Patient's skin is warm and dry. Historical: - Allergies: 14:33 No Known Allergies; vg1 - PMHx: 14:33 Hypertensive disorder; Gout; Hypercholesterolemia; Hypothyroidism; vg1 - Immunization history:: Client reports receiving the 2nd dose of the Covid vaccine. - Social history:: Smoking status: Patient reports the use of cigarette tobacco products, smokes one pack cigarettes per day. - Family history:: not pertinent. Screenin:30 Abuse screen: Denies threats or abuse. Denies injuries from another. Nutritional ww screening: No deficits noted. Tuberculosis screening: No symptoms or risk factors identified. Fall Risk None identified. Assessment: 16:30 General: Appears in no apparent distress. comfortable, Behavior is calm, cooperative, ww appropriate for age. Pain: Denies pain. Neuro: Level of Consciousness is awake, alert, obeys commands, Oriented to person, place, time, situation, Speech is normal. Cardiovascular: Denies chest pain, shortness of breath, Capillary refill < 3 seconds Patient's skin is warm and dry. Chest pain is denied. Respiratory: Airway is patent Respiratory effort is even, unlabored, Respiratory pattern is regular, symmetrical. GI: Abdomen is non-distended, Abd is soft and non tender patient has stomach cancer and seeing oncology at this time. : No deficits noted. No signs and/or symptoms were reported regarding the genitourinary system. Derm: No deficits noted. No signs and/or symptoms reported regarding the dermatologic system. Skin is intact, is thin, Skin is normal. Musculoskeletal: No deficits noted. No signs and/or symptoms reported regarding the musculoskeletal system. 17:30 Reassessment: Patient appears in no apparent distress at this time. No changes from ww previously documented assessment. Patient and/or family updated on plan of care and expected duration. Pain level reassessed. Patient is alert, oriented x 3, equal unlabored respirations, skin warm/dry/pink. 18:43 Reassessment: Patient appears in no apparent distress at this time. No changes from ww previously documented assessment. Patient and/or family updated on plan of care and expected duration. Pain level reassessed. Patient is alert, oriented x 3, equal unlabored respirations, skin warm/dry/pink. 20:00 Reassessment: No changes from previously documented assessment. Patient and/or family vc1 updated on plan of care and expected duration. Pain level reassessed. Patient is alert, oriented x 3, equal unlabored respirations, skin warm/dry/pink. Patient denies pain at this time. 21:24 Reassessment: Patient appears in no apparent distress at this time. No changes from vc1 previously documented assessment. Patient and/or family updated on plan of care and expected duration. Pain level reassessed. Patient is alert, oriented x 3, equal unlabored respirations, skin warm/dry/pink. Patient denies pain at this time. Vital Signs: 14:26 BP 133 / 73; Pulse 80; Resp 16; Temp 97.5; Pulse Ox 100% ; Height 5 ft. 9 in. (175.26 vg1 cm); Pain 0/10; ED Course: 13:00 Patient arrived in ED. am2 14:33 Triage completed. vg1 14:33 Arm band placed on. vg1 15:22 Patient placed in an exam room, on a stretcher. ll1 15:23 David Luna MD is Attending Physician. [facility] 15:50 Chest Single View XRAY In Process Unspecified. [facility] 15:51 Rosaura Garay, RN is Primary Nurse. ww 16:30 Patient has correct armband on for positive identification. Bed in low position. Call ww light in reach. Side rails up X 1. 16:30 Initial lab(s) drawn, by dc, sent to lab. Inserted saline lock: 20 gauge in right ww forearm, using aseptic technique. Blood collected. 16:43 Notified ED physician of a critical lab result(s). HGB 6.9, platelet 1126. ll1 21:23 No provider procedures requiring assistance completed. IV discontinued, intact, vc1 bleeding controlled, No redness/swelling at site. Administered Medications: 16:55 Drug: NS 0.9% 1000 ml Route: IV; Rate: 75 ml/hr; Site: right forearm; 09/03 01:00 Follow up: Response: No adverse reaction; IV Status: Infusion continued upon admission; vc1 IV Intake: 800ml Intake: 01:00 IV: 800ml; Total: 800ml. vc1 Outcome: 09/02 17:03 Discharge ordered by . [facility] 21:24 Discharged to home ambulatory, with family. vc1 21:24 Condition: good 21:24 Discharge instructions given to patient. 21:25 Patient left the ED. vc1 Signatures: Dispatcher [employer] [facility] David Luna MD MD cha Moreno, Amanda 2 Liya Pacheco RN RN 1 Ashley Nina RN RN 1 Rosaura Garay, RN CONNIE Lilly Schaefer RN RN vc1 Corrections: (The following items were deleted from the chart) 13:56 13:55 Reassessment: [place] [id number]
[2021-09-02] MEDS ORDERED: NA CHLORIDE 0.9% 250 ML ONE (18:30)
[2021-09-02 20:36] LABS: White Blood Cell Scan OK (OK)
[2021-09-02 20:37] LABS: Anisocytosis 3+; Blood Morphology Comment NOTED (NOT SEEN); Ovalocytes 3+; Platelet Estimate INCR
[2021-09-02 21:58] VITALS: BP 133/73; TEMP 97.5; O2SAT 100
== END 2021-09-02 21:25 | disposition home or self-care (01) ==
LOC: ER 12:56
PROC: 30233N1 Transfusion of Nonautologous Red Blood Cells into Peripheral Vein, Percutaneous Approach (ICD-10-PCS; principal; 2021-09-02)
DX: D64.9 Anemia, unspecified (principal); J90 Pleural effusion, not elsewhere classified; R53.1 Weakness; I10 Essential (primary) hypertension; F17.210 Nicotine dependence, cigarettes, uncomplicated
CPT/HCPCS: 85025; 36415; 86900; 86850; 86901; 80053; 71045; 36430; P9016 ×2; J7050; J7030; 96360; 96361; 99284

== ENCOUNTER 2021-12-28 07:13 | Emergency (ER) | payer OTHER ==
--- OUTSIDE RECORDS SUMMARY | 2021-12-28 07:16 | XMS REPORT | Continuity of Care Document ---
:1950 Author Organization [facility] t Address [address] [place] [address] Care Team Providers Name Role Phone None Primary Care Physician Unavailable BENJAMIN Attending Clinician Unavailable CRISTHIAN Attending Clinician Unavailable COOPER SHELTON Attending Clinician Unavailable WANG Attending Clinician Unavailable Beverley RODRIGUEZ Attending Clinician Unavailable SHALOM Attending Clinician Unavailable GEMMA VALLADARES Attending Clinician Unavailable EMILY RIVER Attending Clinician Unavailable NEFTALI WOOD Attending Clinician Unavailable COOPER SHELTON Admitting Clinician Unavailable PETRA Admitting Clinician Unavailable SHALOM Admitting Clinician Unavailable GRECIA Admitting Clinician Unavailable LORIN BEASLEY Admitting Clinician Unavailable Payers Payer Name Policy Type Policy Number Effective Date Expiration Date S roselinedebra WELLCARE/WELLCARE [id number] 2021 [facility] 00:[facility]00 SurgeryEdu [facility] [id number] 2021 00:00:00 MEDICAID [place] [id number] 2020 00:00:00 Problems Condition Condition Condition Status Onset Resolution Last Treating Co mments Source Name Details Category Date Date Treatment Clinician Date No known No known Disease UT active active Health problems problems Left Left Problem Active Central ventricula ventricula [...] Chest pain Problem Active C entral Care [facility] Tobacco Tobacco Problem Active Central Abuse Abuse Care Counseling Counseling Co [facility] GERD GERD Problem Active Central (gastroeso (gastroeso Ca re phageal phageal [facility] reflux reflux ty disease) disease) [facility] Hypothyroi Hypothyroi Problem Active C entral dism dism Care [facility] Essential Essential Problem Active Shani tral hypertensi hypertensi Ca re on on [facility] Neuropathy Neuropathy Problem Active C entral Care [facility] Diabetes Diabetes Problem Active Centr al type 2, type 2, Care controlled controlled Co [facility] History of History of Problem Active C entral hyperlipid hyperlipid Ca re emia emia [facility] Iron Iron Problem Active Central deficiency deficiency Ca re anemia anemia [facility] Constipati Constipati Problem Active C entral on on Care [facility] Loss of Loss of Problem Active Central appetite appetite Care [facility] Allergies, Adverse Reactions, Alerts Allergy Allergy Status Severity Reaction(s) Onset Inactive Treating Comm ents Source Name Type Date Date Clinician NO KNOWN Allergy Active [facility]GIE S Social History Social Habit Start Date Stop Date Quantity Comments Source Exposure to Not sure [facility] SARS-CoV-2 (event) Alcohol intake 2021-09-16 2021-09-16 Current drinker of [facility] 00:00:00 00:00:00 alcohol (finding) Tobacco Comment 2021-09-09 2021-09-09 weekly [facility] 00:00:00 00:00:00 Cigarettes smoked 2021-09-09 2021-09-09 [facility] current (pack per 00:00:00 00:00:00 day) - Reported Tobacco use and 2021-09-09 2021-09-09 Smokeless tobacco [facility] exposure 00:00:00 00:00:00 non-user Sex Ass[birth year] At [birth year] [facility] 00:00:00 00:00:00 Smoking Status Start Date Stop Date Source Smokes tobacco daily 2021-09-09 00:00:00 [facility] Medications Ordered Filled Start Stop Current Ordering Indication Dosage Frequency Signature Comments Components Source Medication Medication Date Date Medication? Clinician (SIG) Name Name aspirin Yes 1 tablet UT (ASPIR) 81 1-24 Health MG EC 12:17: tablet 24 simvastatin Yes 1 UT (Zocor) 40 1-24 Health MG tablet 12:17: 24 OMEPRAZOLE Yes 1 capsule UT PO 1-24 Health 12:17: 24 levothyroxi Yes 25ug Take 25 UT ne 1-24 mcg by Health (Synthroid, 12:17: mouth. Levoxyl) 25 24 MCG tablet gabapentin Yes 100mg QD Take 100 UT (Neurontin) 1-24 mg by Health 100 MG 12:17: mouth 1 capsule 24 (one) time each day. lisinopril- Yes 1 tablet UT hydroCHLORO 1-24 Health thiazide 12:17: 20-25 MG 24 tablet metFORMIN Yes 500mg QD Take 500 UT (Glucophage 5-03 mg by Health ) 500 MG 00:00: mouth 1 tablet 00 (one) time each day. Docusate Docusate Yes Mercedes 1 capsule Central Sodium Sodium 2-26 Anthony as needed Care 00:00: [facility] Ferrous Ferrous Yes Mercedes 1 tablet C entral Sulfate Sulfate -12 Anthony Care 00:00: Commun [facility] Bromfed DM Bromfed DM 2017-08 Yes Mercedes 10 ml as Central 2-19 Anthony needed Care 00:00: [facility] Medrol Medrol 2017-08 Yes Mercedes as Central (Robert) (Robert) 2-19 Anthony directed Care 00:00: on pack [facility] Metformin Metformin 2017-08 Yes Mercedes 1 tablet Central HCl HCl 1-26 Anthony with meals Care 00:00: Commun [facility] Gabapentin Gabapentin 2017-08 Yes Mercedes as Central 1-20 Anthony directed Care 00:00: Commun [facility] Nicoderm CQ Nicoderm CQ 2017-08 Yes Mercedes 1 patch to Central 1-19 Anthony skin Care 00:00: [facility] Lisinopril- Lisinopril- Yes Mercedes 1 tablet Central Hydrochloro Hydrochloro Anthony Care thiazide thiazide [facility] Aspir-81 Aspir-81 Yes Mercedes 1 tablet C entral Anthony Care [facility] Doc-Q-Lace Doc-Q-Lace Yes Mercedes not C entral [facility] Omeprazole Omeprazole Yes Mercedes 1 capsule [facility] Simvastatin Simvastatin Yes Mercedes 1 [facility] Meloxicam Meloxicam Yes Mercedes 1 tablet [facility] Xanax Xanax Yes Mercedes 1 tablet [facility] Levothyroxi Levothyroxi Yes Mercedes 1 Central ne Sodium ne Sodium Anthony Car e [facility] Vital Signs Vital Name Observation Time Observation Value Comments Source Systolic blood pressure 2021-09-09 18:17:00 123 mm[Hg] [facility] Diastolic blood pressure 2021-09-09 18:17:00 64 mm[Hg] [facility] Heart rate 2021-09-09 18:17:00 88 /min [facility] Body temperature 2021-09-09 18:17:00 36.61 Miya [facility] Body height 2021-09-09 18:17:00 170.2 cm [facility] Body weight 2021-09-09 18:17:00 76.204 kg [facility] BMI 2021-09-09 18:17:00 26.31 kg/m2 [facility] Procedures This patient has no known procedures. Encounters Start End Encounter Admission Attending Care Care Encounter Source Date/Time Date/Time Type Type Clinicians Facility Department ID 2021-12-13 Outpatient [facility] [id number] [place] 09:55:[id number] [place] [address] 2021-09-09 Outpatient BENJAMIN [facility] [id number] [place] 12:57:25 [facility] 2021-07-30 Outpatient CRISTHIAN [facility] [id number] [place] 01:04:37 [facility] 2021-10-04 2021-10-04 Outpatient SAMMY SHELTON [id number] MH 12:00:00 23:59:00 [facility] 2021-09-09 2021-09-09 Office [facility]OCHITL [facility] [id number] [place] 11:00:00 12:57:24 Visit [facility] [id number] [facility] [address] [id number] 2021-08-10 2021-08-11 Inpatient ER WANG, [facility] [id number] [facility] 20:29:00 16:35:00 SARAH 2020-10-20 2020-10-21 Inpatient E SHALOM, [facility] [id number] [facility] 19:30:00 16:20:00 [facility] 2020-05-05 2020-05-05 Emergency [id number] 11:23:00 23:57:00 [facility] 2019-12-21 2019-12-22 [id number] 18:16:00 03:45:00 YESSICA 2019-02-28 2019-02-28 Out[place] [facility] [place] [id number] [place] 08:24:00 08:24:00 Care [facility] 2019-02-09 2019-02-09 Emergency E [facility] [id number] [facility] 10:55:00 10:55:00 2018-10-12 2018-10-12 Outpatient [facility] [place] [id number] [place] 08:20:00 08:20:00 Care [facility] 2018-09-09 2018-09-09 Outpatient [facility] [id number] [facility] 13:00:00 13:00:00 Care Care [facility] 2018-09-03 2018-09-03 Out[place] [facility] [id number] [place] 10:00:00 10:00:00 Care Care [facility] 2018-08-28 2018-08-28 Outpatient [facility] [id number] Central 10:40:00 10:40:00 Care Care [facility] 2018-08-19 2018-08-19 Outpatient [facility] [id number] Central 13:40:00 13:40:00 Care Care [facility] 2018-08-04 2018-08-04 Outpatient [facility] [place] [id number] Central 08:40:00 08:40:00 Care Care Care Integrate Integrated [facility] [place] [facility] Services Services [facility] 2018-07-12 2018-07-12 Outpatient [facility] [id number] Central 08:40:00 08:40:00 Care Care Care [facility] Integrated [facility] [place] [facility] Services Services [facility] 2018-07-06 2018-07-06 Outpatient [facility] [id number] [place] 11:20:00 11:20:00 Care Care Care Integrate Integrated [facility] [place] [facility] Services Services [facility] 2018-07-05 2018-07-05 Outpatient [place] [facility] [id number] [place] 09:17:00 09:17:00 Care Care Care Integrate Integrated [facility] [place] [facility] ty Services Services [facility] 2018-07-05 2018-07-05 Outpatient [facility] [id number] [place] 08:20:00 08:20:00 Care Care Care Integrate Integrated [facility] [place] [facility] Services [facility] 2018-06-28 2018-06-28 Outpatient [facility] [id number] [place] 09:00:00 09:00:00 Care Care Care [facility] Integrated [facility] [place] [facility] Services Services [facility] Results Test Description Test Time Test [...] code = 347) < U/L 6-55 L Surgical Lead ID - DBHIGH SENSITIVITY TROPONIN [id number] 09:51:42 Test Item Value Reference Range Interpretation Comments HIGH SENSITIVITY 7 pg/ml See_Comment [Automated message] TROPONIN I (test code = The system which 4121435) generated this result transmitted ref erence range: <=35. Th e reference range was not used to interpr et this result as normal/abnormal . Surgical Lead ID - DBThe LUGGAGE MAKER STAT High Sensitivity Troponin-I results should be used in conjunctionwith other diagnostic information such as ECG, clinical observations and information, and patient symptoms to aid in the diagnosis of IN.BASIC METABOLIC [id number] 09:45:58 Test Item Value Reference Range Interpretation [...] S NOT APPLICABLE FOR DIALYSIS PATIEN TS. Surgical Lead ID - [id number] 09:42:44 Test Item Value Reference Range Interpretation Comments PROTIME (BEAKER) 14.9 seconds 11.9-14.2 H (test code = 759) INR (BEAKER) (test 1.19 See_Comment [Automat ed message] code = 370) The system [employer] generated this result transmitted ref erence range: [...] % 20-55 L (test code = 2590) Surgical Lead ID - DBHIGH SENSITIVITY TROPONIN [id number] 23:05:24 Test Item Value Reference Range Interpretation Comments HIGH SENSITIVITY 5 pg/ml See_Comment [Automated message] TROPONIN I (test code = The system which [id number]) generated this result transmitted ref erence range: <=35. Th e reference range was not used to interpr et this result as normal/abnormal . Surgical Lead ID - DBThe LUGGAGE MAKER STAT High Sensitivity Troponin-I results should be used in conjunctionwith other diagnostic information such as ECG, clinical observations and information, and patient symptoms to aid in the diagnosis of IN.HEMOGLOBIN AND [id number] 22:41:03 Test Item Value Reference Range Interpretation Comments HEMOGLOBIN (BEAKER) (test code = 6.2 GM/DL 13.7-17.5 L 410) HEMATOCRIT (BEAKER) (test code = 22.9 % 40.1-51.0 L 411) Surgical Lead ID - [id number]-GLUCOSE [id number] 08:32:00 Test Item Value Reference Range Interpretation Comments POC-GLUCOSE METER 106 mg/dL 70-110 : TESTED A T [facility] 6720 (BEAKER) (test code = CE [address], 1538) [address]: Surgical Lead/Techni andrés ID = [id number] for ARCHANA [place] [id number] 07:02:00 Test Item Value Reference Range Interpretation Comments PHOSPHORUS (BEAKER) (test code = 2.5 mg/dL 2.3-4.7 604) [id number] 07:02:00 Test Item Value Reference Range Interpretation Comments MAGNESIUM (BEAKER) (test code = 1.9 mg/dL 1.6-2.6 627) BASIC METABOLIC [id number] 07:02:00 Test Item Value Reference Range Interpretation [...] PATIEN TS. CBC W/PLT COUNT & AUTO [id number] 05:18:00 Test Item Value Reference Range Interpretation [...] PERCENT (BEAKER) (test code = 2801) POCT-GLUCOSE [id number] 22:13:00 Test Item Value Reference Range Interpretation Comments POC-GLUCOSE METER 129 mg/dL 70-110 H : TESTED A T [facility] 6720 (BEAKER) (test code = [facility], 153) 51912: Surgical Lead/Techni andrés ID = [id number] for Katie Palacios POCT-GLUCOSE [id number] 12:48:00 Test Item Value Reference Range Interpretation Comments POC-GLUCOSE METER 135 mg/dL 70-110 H : TESTED A T [facility] 6720 (BEAKER) (test code = [facility], 1538) 53219: Surgical Lead/Techni andrés ID = [id number] for NOEL MCFARLANE HEMOGLOBIN [id number] 12:15:00 Test Item Value Reference Range Interpretation Comments HEMOGLOBIN A1C (BEAKER) (test code = 6.0 % 4.3-6.1 368) TROPONIN [id number] 07:22:00 Test Item Value Reference Range Interpretation [...] failure, acidosis, acute neurological disease, and persistent tachyarrhythmia.[id number] 07:16:00 Test Item Value Reference Range Interpretation Comments PHOSPHORUS (BEAKER) (test code = 2.8 mg/dL 2.3-4.7 604) [id number] 07:16:00 Test Item Value Reference Range Interpretation Comments MAGNESIUM (BEAKER) (test code = 1.9 mg/dL 1.6-2.6 627) BASIC METABOLIC [id number] 07:16:00 Test Item Value Reference Range Interpretation [...] NOT APPLICABLE FOR DIALYSIS PATIEN TS. LIPID [id number] 07:16:00 Test Item Value Reference Range Interpretation [...] Very High >=190CBC W/PLT COUNT & AUTO [id number] 07:03:00 Test Item Value Reference Range Interpretation [...] PERCENT (BEAKER) (test code = 2801) TROPONIN [id number] 21:59:00 Test Item Value Reference Range Interpretation [...] acidosis, acute neurological disease, and persistent tachyarrhythmia.POCT-GLUCOSE [id number] 21:34:00 Test Item Value Reference Range Interpretation Comments POC-GLUCOSE METER 131 mg/dL 70-110 H : TESTED A T [facility] 6720 (BEAKER) (test code = SVETAANGELICA [address], 1538) [address]198: Surgical Lead/Techni andrés ID = [id number] for Liliana Gutiérrez [id number] 15:58:00 Test Item Value Reference Range Interpretation Comments FERRITIN (BEAKER) (test code = 361) < ng/mL 5-275 L VITAMIN B12 AND [id number] 15:57:00 Test Item Value Reference Range Interpretation Comments VITAMIN B12 (BEAKER) (test code = 250 pg/mL 213816 774) FOLATE (BEAKER) (test code = 362) [...] 125-220 H code = 635) HEPATIC FUNCTION [id number] 15:21:00 Test Item Value Reference Range Interpretation [...] pg/mL 0-100 (test code = 700) TROPONIN [id number] 13:55:00 Test Item Value Reference Range Interpretation [...] failure, acidosis, acute neurological disease, and persistent tachyarrhythmia.[id number] 13:48:00 Test Item Value Reference Range Interpretation Comments MAGNESIUM (BEAKER) (test code = 2.0 mg/dL 1.6-2.6 627) BASIC METABOLIC [id number] 13:48:00 Test Item Value Reference Range Interpretation [...] PATIEN TS. CBC W/PLT COUNT & AUTO [id number] 13:47:00 Test Item Value Reference Range Interpretation [...] = 2801) RAD, CHEST, 1 VIEW, NON [id number] 13:47:00Reason for exam:->chest pain FINAL REPORT INDICATION: chest pain COMPARISON: None TECHNIQUE: Single frontal view of the chest. FINDINGS: Lungs and pleura: Clear lungs. No effusion.Heart and mediastinum: Normal heart size. Unremarkable mediastinal contours.Osseous structures: No acute abnormality.Other: None. IMPRESSION: No acute intrathoracic abnormality. Signed: JR Comer Robert MDReport VerifiedDate/Time: 07/21/2019 13:47:00 Reading Location: [facility] Radiology Reading Room
[2021-12-28] MEDS ORDERED: NA CHLORIDE 0.9% 1,000 ML ONE (07:31)
[2021-12-28] MEDS ORDERED: HYDROMORPHONE HCL 1 MG/ML INJ ONE ×2 (07:31→10:16)
[2021-12-28] MEDS ORDERED: ONDANSETRON 4 MG/2 ML VIAL ONE (07:31)
[2021-12-28] MEDS ORDERED: FAMOTIDINE 20 MG/2 ML VIAL IV ONE (07:31)
[2021-12-28 07:54] LABS: Absolute Lymphocytes (CBC) 1.3 K/uL (0.7-4.9); Hematocrit 25.1 % (39.6-49.0); Lymphocytes % 29.4 % (15.3-44.8); MPV 6.2 fL (7.6-11.3); RBC Red Blood Cell Count 3.48 M/uL (4.33-5.43)
[2021-12-28 08:05] LABS: Albumin 3.2 g/dL (3.4-5.0); Bilirubin Total 0.3 mg/dL (0.2-1.0); Potassium 3.4 mmol/L (3.5-5.1); Protein, Total 6.9 g/dL (6.4-8.2)
--- NOTE | 2021-12-28 08:40 | RAD REPORT ---
EXAM DESCRIPTION: CTAbdomen Pelvis W Contrast - 12/28/2021 8:29 am CLINICAL HISTORY: Abdominal pain, acute, nonlocalized COMPARISON: <Comparisons> TECHNIQUE: CT of the abdomen and pelvis was performed. All CT scans are performed using dose optimization technique as appropriate and may include automated exposure control or mA/KV adjustment according to patient size. FINDINGS: Lower chest: No acute abnormality. Liver: No acute abnormality or suspicious lesions. Biliary: No biliary ductal dilatation. Stomach: No significant focal abnormality. Duodenum: No significant focal abnormality. Pancreas: No significant abnormality. Spleen: No significant abnormality. Adrenal: No suspicious lesions. Kidney/ureter: No hydronephrosis. No renal calculi. Retroperitoneum: No retroperitoneal adenopathy. Vascular: No aneurysm. Atherosclerosis Bowel: Dilated proximal colon distal small bowel. Findings remain concerning for a concentric mass at the proximal transverse colon also to others part of the adjacent duodenum.. Normal appendix. Peritoneum: Small volume of free fluid. Bladder: Grossly unremarkable. Reproductive: No adnexal masses. Bones: No acute fracture. Other: n/a IMPRESSION: Findings concerning for least a partial colonic obstruction with concentric mass at the proximal transverse colon as the source of obstruction. . Recommend surgical consultation. Small volume of ascites
--- NOTE | 2021-12-28 09:09 | EDPHYS ---
Physician Documentation [facility] Name: German Arnold Age: 71 yrs Sex: Male : 1950 Arrival Date: 12/28/2021 Time: 07:13 Bed 18 Private MD: ED Physician Sara Robertson HPI: 12/28 07:23 This 71 yrs old Black Male presents to ER via EMS with complaints of Abdominal Pain. ma2 07:23 Associated signs and symptoms: Pertinent negatives: anorexia, constipation, dysuria, ma2 headache, hematuria, shortness of breath, testicular pain, vomiting, vomiting blood. Severity of pain: At its worst the pain was moderate in the emergency department the pain is unchanged. 07:28 71 male history of stomach cancer here with epigastric abdominal pain for 1 day ma2 intermittent denies vomiting diarrhea or urinary symptoms, pain is severe.. Historical: - Allergies: 07:15 No Known Allergies; bp - PMHx: 07:15 Gout; Hypercholesterolemia; Hypertensive disorder; Hypothyroidism; bp - Immunization history:: Adult Immunizations up to date. - Social history:: Smoking status: unknown. - Family history:: not pertinent. ROS: 07:28 Constitutional: Negative for fever, chills, and weight loss. ma2 07:28 All other systems are negative. Exam: 07:28 Constitutional: This is a well developed, well nourished patient who is awake, alert, ma2 and in no acute distress. Head/Face: Normocephalic, atraumatic. Eyes: Pupils equal round and reactive to light, extra-ocular motions intact. Lids and lashes normal. Conjunctiva and sclera are non-icteric and not injected. Cornea within normal limits. Periorbital areas with no swelling, redness, or edema. ENT: Nares patent. No nasal discharge, no septal abnormalities noted. Tympanic membranes are normal and external auditory canals are clear. Oropharynx with no redness, swelling, or masses, exudates, or evidence of obstruction, uvula midline. Mucous membranes moist. Neck: Trachea midline, no thyromegaly or masses palpated, and no cervical lymphadenopathy. Supple, full range of motion without nuchal rigidity, or vertebral point tenderness. No Meningismus. Chest/axilla: Normal chest wall appearance and motion. Nontender with no deformity. No lesions are appreciated. Cardiovascular: Regular rate and rhythm with a normal S1 and S2. No gallops, murmurs, or rubs. Normal PMI, no JVD. No pulse deficits. Respiratory: Lungs have equal breath sounds bilaterally, clear to auscultation and percussion. No rales, rhonchi or wheezes noted. No increased work of breathing, no retractions or nasal flaring. Abdomen/GI: Soft, non-tender, with normal bowel sounds. No distension or tympany. No guarding or rebound. No evidence of tenderness throughout. Back: No spinal tenderness. No costovertebral tenderness. Full range of motion. Skin: Warm, dry with normal turgor. Normal color with no rashes, no lesions, and no evidence of cellulitis. MS/ Extremity: Pulses equal, no cyanosis. Neurovascular intact. Full, normal range of motion. Neuro: Awake and alert, GCS 15, oriented to person, place, time, and situation. Cranial nerves II-XII grossly intact. Motor strength 5/5 in all extremities. Sensory grossly intact. Cerebellar exam normal. Normal gait. Vital Signs: 07:14 BP 127 / 60; Pulse 70; Resp 16; Temp 98; Pulse Ox 100% ; bp 07:19 BP 117 / 50; Pulse 74; Resp 20; Pulse Ox 100% ; Weight 78.93 kg (R); Height 6 ft. 0 in. mb7 (182.88 cm) (R); 07:21 Temp 98.1(O); mb7 08:55 BP 115 / 50; Pulse 65; Resp 16; Pulse Ox 99% ; bp 09:39 BP 116 / 57; Pulse 65; Resp 16; Pulse Ox 100% ; bp 10:16 BP 116 / 57; Pulse 65; Resp 16; Pulse Ox 95% ; bp 07:19 Body Mass Index 23.60 (78.93 kg, 182.88 cm) mb7 MDM: 07:21 Patient medically screened. ma2 07:28 Differential diagnosis: gastritis, gastroesophageal reflux disease, Irritable bowel ma2 syndrome, non-specific abd pain, pancreatitis. 09:05 Data reviewed: vital signs, nurses notes. Counseling: I had a detailed discussion with ma2 the patient and/or guardian regarding: the historical points, exam findings, and any diagnostic results supporting the discharge/admit diagnosis, the presence of at least one elevated blood pressure reading (>120/80) during this emergency department visit, the need for outpatient follow up. Response to treatment: the patient's symptoms have markedly improved after treatment. ED course: 71-year-old male, CT abdomen shows small bowel obstruction with colonic mass likely mets from his self-reported stomach cancer. I discussed with Dr. Alegria and he advised to transfer to a colorectal surgeon, I admit for discussion of the patient with recommendation of transfer, I explained the pathophysiology of small bowel obstruction patient had full understanding however he stated he is not going to be transferred and does not want to be admitted to the hospital either for pain control or any other intervention, he said he is going to go home he understands all risk that may include abscess small bowel obstruction dehydration and .. 12/28 07:23 Order name: CBC with Diff; Complete Time: 10:07 ma2 12/28 07:23 Order name: CMP; Complete Time: 08:45 mo2 12/28 07:23 Order name: Lipase; Complete Time: 08:45 mo2 12/28 07:23 Order name: CT Abd/Pelvis - IV Contrast Only [facility] 12/28 08:05 Order name: Manual Differential; Complete Time: 10:07 EDMS 12/28 07:23 Order name: IV Saline Lock; Complete Time: 07:41 mo2 12/28 07:23 Order name: Labs collected and sent; Complete Time: 07:41 mo2 12/28 07:27 Order name: Abdomen ; Complete Time: 08:45 EDMS Administered Medications: 07:40 Drug: NS 0.9% 1000 ml Route: IV; Rate: 1 bolus; Site: Port-a-cath; bp 10:17 Follow up: IV Status: Completed infusion; IV Intake: 1000ml bp 07:40 Drug: Pepcid (famotidine) 20 mg Route: IVP; Site: Port-a-cath; bp 08:34 Follow up: Response: No adverse reaction bp 07:40 Drug: Zofran (Ondansetron) 4 mg Route: IVP; Site: Port-a-cath; bp 08:34 Follow up: Response: Nausea is decreased bp 07:40 Drug: Dilaudid (HYDROmorphone) 1 mg Route: IVP; Site: Port-a-cath; bp 08:34 Follow up: Response: Pain is decreased bp 10:15 Drug: Dilaudid (HYDROmorphone) 1 mg Route: IVP; Site: Port-a-cath; bp 10:16 Follow up: Response: No adverse reaction; Pain is decreased bp Disposition Summary: 12/28/21 09:08 Discharge Ordered Location: Home ma2 Condition: Stable ma2 Diagnosis - Abdominal pain, Generalized - partial bowel obstruction, colon mass ma2 Followup: ma2 - With: Private Physician - When: Tomorrow - Reason: If symptoms return, Continuance of care Discharge Instructions: - Discharge Summary Sheet ma2 - Colon Mass, Adult ma2 Forms: - Medication Reconciliation Form ma2 - Thank You Letter ma2 - Antibiotic Education ma2 - Prescription Opioid Use ma2 Prescriptions: - Tylenol-Codeine #3 300 mg-30 mg Oral - take 1 tablet by ORAL route 4 times per day; 20 tablet; Refills: 0, Product ma2 Selection Permitted Signatures: Dispatcher [employer] Hugo Wilcox RN RN bp Alzahri, Mohammad, MD MD ma2
--- NOTE | 2021-12-28 09:09 | ER ---
Nurse's Notes [facility] Name: German Arnold Age: 71 yrs Sex: Male : 1950 Arrival Date: 12/28/2021 Time: 07:13 Bed 18 Private MD: Diagnosis: Abdominal pain, Generalized-partial bowel obstruction, colon mass Presentation: 12/28 07:14 Chief complaint: EMS states: ABDOMINAL PAIN 2/2 STOMACH CA. Coronavirus screen: At this bp time, the client does not indicate any symptoms associated with coronavirus-19. Ebola Screen: No symptoms or risks identified at this time. Initial Sepsis Screen: Does the patient meet any 2 criteria? No. Patient's initial sepsis screen is negative. Does the patient have a suspected source of infection? No. Patient's initial sepsis screen is negative. Risk Assessment: Do you want to hurt yourself or someone else? Patient reports no desire to harm self or others. Onset of symptoms was December 28, 2021. 07:14 Method Of Arrival: EMS: [facility] bp 07:14 Acuity: VELASQUEZ 3 bp Triage Assessment: 07:15 General: Appears in no apparent distress. uncomfortable, Behavior is cooperative, bp appropriate for age, anxious. Pain: Complains of pain in abdomen. EENT: No deficits noted. Neuro: No deficits noted. Cardiovascular: No deficits noted. Respiratory: No deficits noted. GI: Abdomen is non-distended. : No signs and/or symptoms were reported regarding the genitourinary system. Derm: No deficits noted. Musculoskeletal: No deficits noted. Historical: - Allergies: 07:15 No Known Allergies; bp - PMHx: 07:15 Gout; Hypercholesterolemia; Hypertensive disorder; Hypothyroidism; bp - Immunization history:: Adult Immunizations up to date. - Social history:: Smoking status: unknown. - Family history:: not pertinent. Screenin:17 Abuse screen: Denies threats or abuse. Denies injuries from another. Nutritional bp screening: No deficits noted. Tuberculosis screening: No symptoms or risk factors identified. Fall Risk None identified. Assessment: 07:17 Reassessment: SEE TRIAGE NOTE. bp 08:55 Reassessment: No changes from previously documented assessment. Patient and/or family bp updated on plan of care and expected duration. Pain level reassessed. PT RETURNED FROM CT Patient states symptoms have improved. 09:39 Reassessment: D/C ON HOLD FOR FAMILY RETURN. bp 10:16 Reassessment: PT D/C HOME AMBULATORY WITH FAMILY, DX WITH PARTIAL SBO. bp Vital Signs: 07:14 BP 127 / 60; Pulse 70; Resp 16; Temp 98; Pulse Ox 100% ; bp 07:19 BP 117 / 50; Pulse 74; Resp 20; Pulse Ox 100% ; Weight 78.93 kg (R); Height 6 ft. 0 in. mb7 (182.88 cm) (R); 07:21 Temp 98.1(O); mb7 08:55 BP 115 / 50; Pulse 65; Resp 16; Pulse Ox 99% ; bp 09:39 BP 116 / 57; Pulse 65; Resp 16; Pulse Ox 100% ; bp 10:16 BP 116 / 57; Pulse 65; Resp 16; Pulse Ox 95% ; bp 07:19 Body Mass Index 23.60 (78.93 kg, 182.88 cm) mb7 ED Course: 07:13 Patient arrived in ED. bp 07:15 Triage completed. bp 07:15 Arm band placed on. bp 07:17 Patient has correct armband on for positive identification. Bed in low position. Call bp light in reach. Side rails up X2. 07:21 Sara Robertson MD is Attending Physician. ma2 07:23 Hugo Guzman, CONNIE is Primary Nurse. bp 07:40 Accessed Port-a-Cath. using accessed w/ # 20 Jarrett needle, ,sterile technique, per hospital protocol. Clean \T\ dry. Dressing intact. Good blood return. Flushes easily. 07:41 CBC with Diff Sent. mb7 07:41 CMP Sent. mb7 07:41 Lipase Sent. mb7 08:31 Abdomen In Process Unspecified. EDMS 10:17 No provider procedures requiring assistance completed. IV discontinued. bp Administered Medications: 07:40 Drug: NS 0.9% 1000 ml Route: IV; Rate: 1 bolus; Site: Port-a-cath; bp 10:17 Follow up: IV Status: Completed infusion; IV Intake: 1000ml bp 07:40 Drug: Pepcid (famotidine) 20 mg Route: IVP; Site: Port-a-cath; bp 08:34 Follow up: Response: No adverse reaction bp 07:40 Drug: Zofran (Ondansetron) 4 mg Route: IVP; Site: Port-a-cath; bp 08:34 Follow up: Response: Nausea is decreased bp 07:40 Drug: Dilaudid (HYDROmorphone) 1 mg Route: IVP; Site: Port-a-cath; bp 08:34 Follow up: Response: Pain is decreased bp 10:15 Drug: Dilaudid (HYDROmorphone) 1 mg Route: IVP; Site: Port-a-cath; bp 10:16 Follow up: Response: No adverse reaction; Pain is decreased bp Medication: 07:17 VIS not applicable for this client. bp Intake: 10:17 IV: 1000ml; Total: 1000ml. bp Outcome: 09:08 Discharge ordered by MD. pena 10:17 Discharged to home ambulatory, with family. bp 10:17 Condition: stable 10:17 Discharge instructions given to patient, family, Instructed on discharge instructions, follow up and referral plans. medication usage, Demonstrated understanding of instructions, follow-up care, medications, Prescriptions given X 1. 10:47 Patient left the ED. bp Signatures: Dispatcher [employer] Hugo Wilcox, CONNIE RN Sara Sanchez MD MD ma2 Breneman, Mary mb7
[2021-12-28 09:13] LABS: Anisocytosis 1+; Blood Morphology Comment NOTED (NOT SEEN); Platelet Estimate ADEQ
[2021-12-28 09:14] LABS: Elliptocytes 1+; Hypochromasia 1+; Poikilocytosis 1+; Teardrop Cell 1+
[2021-12-28 19:02] VITALS: TEMP 98.1
[2021-12-28 19:05] VITALS: BP 116/57
[2021-12-28 19:06] VITALS: O2SAT 95
== END 2021-12-28 10:47 | disposition home or self-care (01) ==
LOC: ER 07:13
DX: K56.600 Partial intestinal obstruction, unspecified as to cause (principal); K63.9 Disease of intestine, unspecified; C16.9 Malignant neoplasm of stomach, unspecified; I10 Essential (primary) hypertension
CPT/HCPCS: 96361; 85025; 36415; 83690; 80053; 74177; 96375; 96374; 99284; Q9967; J1170 ×2; J7030; J2405; J3490

== ENCOUNTER 2021-12-30 14:10 | Emergency (ER) | payer OTHER ==
--- OUTSIDE RECORDS SUMMARY | 2021-12-30 14:14 | XMS REPORT | Continuity of Care Document ---
:1950 Author Organization [facility] t Address [address] [place] [address] Care Team Providers Name Role Phone None [...] Effective Date Expiration Date S natalie WELLCARE/WELLCARE [id number] 2021 [facility] 00:00:00 Resultly [facility] [id number] 2021 00:00:00 [place] [id number] 2020 00:00:00 Problems Condition Condition Condition Status [...] Chest pain Problem Active C entral Care [facility] Tobacco Tobacco Problem Active Central Abuse Abuse Care Counseling Counseling [facility] GERD GERD Problem Active Central (gastroeso (gastroeso Ca re phageal phageal [facility] reflux reflux ty disease) disease) [facility] Hypothyroi Hypothyroi Problem Active C entral dism dism Care [facility] Essential Essential Problem Active Shani tral hypertensi hypertensi Ca re on on [facility] Neuropathy Neuropathy Problem Active C entral Care [facility] Diabetes Diabetes Problem Active Centr al type 2, type 2, Care controlled controlled [facility] History of History of Problem Active C entral hyperlipid hyperlipid Ca re emia emia [facility] Iron Iron Problem Active Central deficiency deficiency Ca re anemia anemia [facility] Constipati Constipati Problem Active C entral on on Care [facility] Loss of Loss of Problem Active Central appetite appetite Care [facility] Allergies, Adverse Reactions, Alerts Allergy Allergy Status Severity Reaction(s) Onset Inactive Treating Comm ents Source Name Type Date Date Clinician NO KNOWN Allergy Active [facility] ALLERGIE S Social History Social Habit Start Date Stop Date Quantity Comments Source Exposure to Not sure [facility] SARS-CoV-2 (event) Alcohol intake 2021-09-16 2021-09-16 Current drinker of [facility] 00:00:00 00:00:00 alcohol (finding) Tobacco Comment 2021-09-09 2021-09-09 weekly [facility] 00:00:00 00:00:00 Cigarettes smoked 2021-09-09 2021-09-09 [facility] current (pack per 00:00:00 00:00:00 day) - Reported Tobacco use and 2021-09-09 2021-09-09 Smokeless tobacco [facility] exposure 00:00:00 00:00:00 non-user Sex Ass[birth year] [facility] 00:00:00 00:00:00 Smoking Status Start Date Stop Date Source Smokes tobacco daily 2021-09-09 00:00:00 [facility] Medications Ordered Filled Start Stop Current Ordering [...] 2-26 Anthony as needed Care 00:00: Communi [facility] Ferrous Ferrous Yes Mercedes 1 tablet C entral Sulfate Sulfate -12 Anthony Care 00:00: Commun [facility] Bromfed DM Bromfed DM 2017-08 Yes Mercedes 10 ml as Central 2-19 Anthony needed Care 00:00: Communi [facility] Medrol Medrol 2017-08 Yes Mercedes as Central (Robert) (Robert) 2-19 Anthony directed Care 00:00: on pack [facility] Metformin Metformin 2017-08 Yes Mercedes 1 tablet Central HCl HCl 1-26 Anthony with meals Care 00:00: Commun [facility] Gabapentin Gabapentin 2017-08 Yes Mercedes as Central 1-20 Anthony directed Care 00:00: Commun [facility] Nicoderm CQ Nicoderm CQ 2017-08 Yes Mercedes 1 patch to Central 1-19 Anthony skin Care 00:00: Commun [facility] Lisinopril- Lisinopril- Yes Mercedes 1 tablet Central Hydrochloro Hydrochloro Anthony Care thiazide thiazide [facility] Aspir-81 Aspir-81 Yes Mercedes 1 tablet C entral Anthony Care [facility] Doc-Q-Lace Doc-Q-Lace Yes Mercedes not C entral [facility] Omeprazole Omeprazole Yes Mercedes 1 capsule [facility] Simvastatin Simvastatin Yes Mercedes 1 [facility] Meloxicam Meloxicam Yes Mercedes 1 tablet [facility] Xanax Xanax Yes Mercedes 1 tablet [facility] Levothyroxi Levothyroxi Yes Mercedes 1 Central ne Sodium ne Sodium Anthony Car e [facility] Vital Signs Vital Name Observation Time Observation Value Comments Source Body height 2021-09-09 18:17:00 170.2 cm [facility] Body weight 2021-09-09 18:17:00 [facility]204 [facility] BMI 2021-09-09 18:17:00 26.31 kg/m2 [facility] Systolic blood pressure 2021-09-09 18:17:00 123 mm[Hg] [facility] Diastolic blood pressure 2021-09-09 18:17:00 64 mm[Hg] [facility] Heart rate 2021-09-09 18:17:00 88 /min [facility] Body temperature 2021-09-09 18:17:00 36.61 [facility]ya [facility] Procedures This patient has no known procedures. Encounters Start End Encounter Admission Attending Care Care Encounter Source Date/Time Date/Time Type Type Clinicians Facility Department ID 2021-12-13 Outpatient [facility] [id number] [place] 09:55:[id number] [place] [address] 2021-09-09 Outpatient BENJAMIN [facility] [id number] [place] 12:57:25 [facility] 2021-07-30 Outpatient CRISTHIAN [facility] [id number] [place] 01:04:37 [facility] 2021-10-04 2021-10-04 Outpatient SAMMY SHELTON RONALD [id number] MH 12:00:00 23:59:00 ANUSHKA 2021-09-09 2021-09-09 Office XOCHITL Dee [facility] [id number] [place] 11:00:00 12:57:24 Visit [facility] [id number] H ealth [address] [id number] 2021-08-10 2021-08-11 Inpatient ER WANG, [facility] [id number] [facility] 20:29:00 16:35:00 SARAH 2020-10-20 2020-10-21 Inpatient E SHALOM, [facility] [id number] [facility] 19:30:00 16:20:00 [facility] 2020-05-05 2020-05-05 Emergency E BLAINE, [facility] [id number] [facility] 11:23:00 23:57:00 [facility] 2019-12-21 2019-12-22 Emergency [id number] 18:16:00 03:45:00 YESSICA 2019-02-28 2019-02-28 Out[place] [facility] [place] [id number] [place] 08:24:00 08:24:00 Care [facility] 2019-02-09 2019-02-09 Emergency E [facility] [id number] [facility] 10:55:00 10:55:00 2018-10-12 2018-10-12 Outpatient [facility] [place] [id number] [place] 08:20:00 08:20:00 Care Care [facility] 2018-09-09 2018-09-09 Outpatient [facility] [id number] [facility] 13:00:00 13:00:00 Care Care [facility] 2018-09-03 2018-09-03 [place] [facility] [id number] [place] 10:00:00 10:00:00 Care Care [facility] 2018-08-28 2018-08-28 Outpatient [facility] Central [id number] Central 10:40:00 10:40:00 Care Care [facility] 2018-08-19 2018-08-19 Outpatient [facility] [id number] Central 13:40:00 13:40:00 Care Care [facility] 2018-08-04 2018-08-04 Outpatient [facility] [id number] Central 08:40:00 08:40:00 Care Care Care Integrate Integrated [facility] [facility] 2018-07-12 2018-07-12 Outpatient [facility] [place] [id number] [facility] 08:40:00 08:40:00 Care Care Care Integrate Integrated [facility] [place] [facility] 2018-07-06 2018-07-06 Outpatient [facility] [id number] [place] 11:20:00 11:20:00 Care Care Care Integrate Integrated [facility] [place] [facility] [place] [facility] 2018-07-05 2018-07-05 Outpatient [facility] [id number] [place] 09:17:00 09:17:00 Care Care Care Integrate Integrated [facility] [place] [facility] 2018-07-05 2018-07-05 Outpatient [facility] [id number] [place] 08:20:00 08:20:00 Care Care Care Integrate Integrated [facility] [place] [facility] 2018-06-28 2018-06-28 Outpatient [facility] [id number] [place] 09:00:00 09:00:00 Care Care Care [facility]ate Integrated [facility] [place] [facility] Results Test Description Test Time Test Comments [...] code = 347) < U/L 6-55 L Lead Refinery Supervisor ID - DBHIGH SENSITIVITY TROPONIN [id number] 09:51:42 Test Item Value Reference Range Interpretation Comments HIGH SENSITIVITY 7 pg/ml See_Comment [Automated message] TROPONIN I (test code = The system which [id number]) generated this result transmitted ref erence range: <=35. Th e reference range was not used to interpr et this result as normal/abnormal . Lead Refinery Supervisor ID - DBThe CLOTH MENDER STAT High Sensitivity Troponin-I results should be used in conjunctionwith other diagnostic information such as ECG, clinical observations and information, and patient symptoms to aid in the diagnosis of CO.BASIC METABOLIC [id number] 09:45:58 Test Item Value Reference Range Interpretation [...] S NOT APPLICABLE FOR DIALYSIS PATIEN TS. Lead Refinery Supervisor ID - [id number] [id number] 09:42:44 Test Item Value Reference Range Interpretation Comments PROTIME (BEAKER) 14.9 seconds 11.9-14.2 H (test code = 759) INR (BEAKER) (test 1.19 See_Comment [Automat ed message] code = 370) The system whic h generated this result transmitted ref erence range: [...] % 20-55 L (test code = 2590) Lead Refinery Supervisor ID - DBHIGH SENSITIVITY TROPONIN [id number] 23:05:24 Test Item Value Reference Range Interpretation Comments HIGH SENSITIVITY 5 pg/ml See_Comment [Automated message] TROPONIN I (test code = The system which [id number]) generated this result transmitted ref erence range: <=35. Th e reference range was not used to interpr et this result as normal/abnormal . Lead Refinery Supervisor ID - DBThe CLOTH MENDER STAT High Sensitivity Troponin-I results should be used in conjunctionwith other diagnostic information such as ECG, clinical observations and information, and patient symptoms to aid in the diagnosis of CO.HEMOGLOBIN AND [id number] 22:41:03 Test Item Value Reference Range Interpretation Comments HEMOGLOBIN (BEAKER) (test code = 6.2 GM/DL 13.7-17.5 L 410) HEMATOCRIT (BEAKER) (test code = 22.9 % 40.1-51.0 L 411) Lead Refinery Supervisor ID - [id number]-GLUCOSE [id number] 08:32:00 Test Item Value Reference Range Interpretation Comments POC-GLUCOSE METER 106 mg/dL 70-110 : TESTED A T [facility] 6720 (BEAKER) (test code = [place], 1538) 31210: Lead Refinery Supervisor/Techni andrés ID = [id number] for ARCHANA COL[place]O [id number] 07:02:00 Test Item Value Reference Range Interpretation Comments PHOSPHORUS (BEAKER) (test code = 2.5 mg/dL 2.3-4.7 604) [id number] 07:02:00 Test Item Value Reference Range Interpretation Comments MAGNESIUM (BEAKER) (test code = 1.9 mg/dL 1.6-2.6 627) BASIC METABOLIC [id number] 07:02:00 Test Item Value Reference Range Interpretation [...] PATIEN TS. CBC W/PLT COUNT & AUTO [id number] 05:18:00 Test Item Value Reference Range Interpretation [...] PERCENT (BEAKER) (test code = 2801) POCT-GLUCOSE [id number] 22:13:00 Test Item Value Reference Range Interpretation Comments POC-GLUCOSE METER 129 mg/dL 70-110 H : TESTED A T [facility] 6720 (BEAKER) (test code = [facility], 153) [id number]: Lead Refinery Supervisor/Techni andrés ID = [id number] for Katie Palacios POCT-GLUCOSE [id number] 12:48:00 Test Item Value Reference Range Interpretation Comments POC-GLUCOSE METER 135 mg/dL 70-110 H : TESTED A T [facility] 6720 (BEAKER) (test code = [facility], 1538) [id number]: Lead Refinery Supervisor/Techni andrés ID = [id number] for NOEL MCFARLANE HEMOGLOBIN [id number] 12:15:00 Test Item Value Reference Range Interpretation Comments HEMOGLOBIN A1C (BEAKER) (test code = 6.0 % 4.3-6.1 368) TROPONIN [id number] 07:22:00 Test Item Value Reference Range Interpretation [...] failure, acidosis, acute neurological disease, and persistent tachyarrhythmia.[id number] 07:16:00 Test Item Value Reference Range Interpretation Comments PHOSPHORUS (BEAKER) (test code = 2.8 mg/dL 2.3-4.7 604) [id number] 07:16:00 Test Item Value Reference Range Interpretation Comments MAGNESIUM (BEAKER) (test code = 1.9 mg/dL 1.6-2.6 627) BASIC METABOLIC [id number] 07:16:00 Test Item Value Reference Range Interpretation [...] NOT APPLICABLE FOR DIALYSIS PATIEN TS. LIPID [id number] 07:16:00 Test Item Value Reference Range Interpretation [...] Very High >=190CBC W/PLT COUNT & AUTO [id number] 07:03:00 Test Item Value Reference Range Interpretation [...] PERCENT (BEAKER) (test code = 2801) TROPONIN [id number] 21:59:00 Test Item Value Reference Range Interpretation [...] acidosis, acute neurological disease, and persistent tachyarrhythmia.POCT-GLUCOSE [id number] 21:34:00 Test Item Value Reference Range Interpretation Comments POC-GLUCOSE METER 131 mg/dL 70-110 H : TESTED A T [facility] 6720 (BEAKER) (test code = [place], 1538) 91138: Lead Refinery Supervisor/Techni andrés ID = [id number] for Liliana Gutiérrez [id number] 15:58:00 Test Item Value Reference Range Interpretation Comments FERRITIN (BEAKER) (test code = 361) < ng/mL 5-275 L VITAMIN B12 AND [id number] 15:57:00 Test Item Value Reference Range Interpretation [...] 125-220 H code = 635) HEPATIC FUNCTION [id number] 15:21:00 Test Item Value Reference Range Interpretation [...] pg/mL 0-100 (test code = 700) TROPONIN [id number] 13:55:00 Test Item Value Reference Range Interpretation [...] failure, acidosis, acute neurological disease, and persistent tachyarrhythmia.[id number] 13:48:00 Test Item Value Reference Range Interpretation Comments MAGNESIUM (BEAKER) (test code = 2.0 mg/dL 1.6-2.6 627) BASIC METABOLIC [id number] 13:48:00 Test Item Value Reference Range Interpretation [...] PATIEN TS. CBC W/PLT COUNT & AUTO [id number] 13:47:00 Test Item Value Reference Range Interpretation [...] = 2801) RAD, CHEST, 1 VIEW, NON [id number] 13:47:00Reason for exam:->chest pain FINAL REPORT INDICATION: chest pain COMPARISON: None TECHNIQUE: Single frontal view of the chest. FINDINGS: Lungs and pleura: Clear lungs. No effusion.Heart and mediastinum: Normal heart size. Unremarkable mediastinal contours.Osseous structures: No acute abnormality.Other: None. IMPRESSION: No acute intrathoracic abnormality. Signed: JR Comer Robert MDReport VerifiedDate/Time: 07/21/2019 13:47:00 Reading Location: [facility] Radiology Reading Room
[2021-12-30] MEDS ORDERED: FAMOTIDINE 20 MG/2 ML VIAL IV ONE (15:49)
[2021-12-30] MEDS ORDERED: FENTANYL CITR 100 MCG/2 ML ONE (15:49)
[2021-12-30] MEDS ORDERED: NA CHLORIDE 0.9% 2,000 ML ONE (15:49)
[2021-12-30] MEDS ORDERED: ONDANSETRON 4 MG/2 ML VIAL ONE (15:49)
[2021-12-30] MEDS ORDERED: NA CHLORIDE 0.9% 100 ML IV ONE (15:49)
[2021-12-30 15:50] LABS: Protime INR 1.19
[2021-12-30] MEDS ORDERED: PIPERACIL/TAZO 3.375 GM VIAL IV ONE (15:50)
[2021-12-30] MEDS ORDERED: NA CHLORIDE 0.9% 1,000 ML ONE (15:50)
[2021-12-30 15:57] LABS: Absolute Lymphocytes (CBC) 0.8 K/uL (0.7-4.9); Hematocrit 26.8 % (39.6-49.0); Lymphocytes % 50.4 % (15.3-44.8); MPV 6.1 fL (7.6-11.3); RBC Red Blood Cell Count 3.73 M/uL (4.33-5.43)
[2021-12-30 16:07] LABS: Albumin 3.3 g/dL (3.4-5.0); Bilirubin Direct 0.1 mg/dL (0-0.2); Bilirubin Total 0.3 mg/dL (0.2-1.0); Magnesium 1.9 mg/dL (1.8-2.4); Potassium 3.4 mmol/L (3.5-5.1); Troponin High Sensitivity 22.3 pg/mL (<58.9)
--- NOTE | 2021-12-30 16:31 | ER ---
Nurse's Notes [facility] Name: German Arnold Age: 71 yrs Sex: Male : 1950 Arrival Date: 12/30/2021 Time: 14:13 Bed 5 Private MD: Diagnosis: Abdominal pain, Generalized;Malignant neoplasm of colon, unspecified;Neutropenia, unspecified;Other intestinal obstruction-MECHANICAL PARTIAL SBO;Anemia, unspecified;Hypokalemia Presentation: 12/30 14:51 Chief complaint: Patient states: Passed out prior to arrival currently undergoing ll1 cancer treatment last chemo treatment 2 weeks ago. Coronavirus screen: Client denies travel out of the [place] in the last 14 days. At this time, the client does not indicate any symptoms associated with coronavirus-19. Ebola Screen: Patient negative for fever greater than or equal to 101.5 degrees Fahrenheit, and additional compatible Ebola Virus Disease symptoms. Risk Assessment: Do you want to hurt yourself or someone else? Patient reports no desire to harm self or others. Onset of symptoms was December 30, 2021. 14:51 Method Of Arrival: Wheelchair ll1 14:51 Acuity: VELASQUEZ 2 ll1 15:46 Initial Sepsis Screen: Does the patient meet any 2 criteria? No. Patient's initial ph sepsis screen is negative. Does the patient have a suspected source of infection? No. Patient's initial sepsis screen is negative. Historical: - Allergies: 14:57 No Known Allergies; ll1 - PMHx: 14:57 Gout; Hypercholesterolemia; Hypertensive disorder; Hypothyroidism; cancer of colon; ll1 - Immunization history:: Adult Immunizations up to date. - Family history:: not pertinent. - Social history:: Smoking status: Patient denies any tobacco usage or history of. Screenin:45 Abuse screen: Denies threats or abuse. Denies injuries from another. Nutritional ph screening: No deficits noted. Tuberculosis screening: No symptoms or risk factors identified. Fall Risk Fall in past 12 months (25 points). No secondary diagnosis (0 pts). IV access (20 points). Ambulatory Aid- None/Bed Rest/Nurse Assist (0 pts). Gait- Weak (10 pts.). Mental Status- Oriented to own ability (0 pts). Total Gray Fall Scale indicates High Risk Score (45 or more points). Fall prevention measures have been instituted. Side Rails Up X 2 Placed Close to Nursing Station Frequent Obs/Assessments Occuring Family Present and informed to notify staff if the need to leave the bedside As available patient and family educated on Fall Prevention Program and Strategies. Assessment: 15:44 General: Appears in no apparent distress. comfortable, well groomed, Behavior is calm, ph cooperative, appropriate for age, Denies fever, feeling ill. Pain: Complains of pain in abdomen. Neuro: Malhotra Agitation-Sedation Scale (RASS): 0 - Alert and Calm Level of Consciousness is awake, alert, obeys commands, Oriented to person, place, time, situation, Reports a syncopal episode. Cardiovascular: Reports lightheadedness, nausea, syncope, Denies chest pain, Capillary refill < 3 seconds in bilateral fingers Patient's skin is warm and dry. Rhythm is sinus rhythm. Respiratory: Airway is patent Respiratory effort is even, unlabored, Respiratory pattern is regular, symmetrical. GI: Abdomen is distended, Reports lower abdominal pain, nausea. Derm: Skin is healthy with good turgor, Skin is pink, warm \\T\\ dry. Musculoskeletal: Circulation, motion, and sensation intact. Range of motion: intact in all extremities. 18:55 Reassessment: Patient appears in no apparent distress at this time. Patient and/or ld1 family updated on plan of care and expected duration. Pain level reassessed. Patient is alert, oriented x 3, equal unlabored respirations, skin warm/dry/pink. Report called to Starr at [facility]. 22:31 General: Appears in no apparent distress. Behavior is calm, cooperative. Neuro: Level kd3 of Consciousness is awake, alert, obeys commands. Cardiovascular: Patient's skin is warm and dry. Respiratory: Airway is patent Respiratory effort is even, unlabored, Respiratory pattern is regular, symmetrical. 22:32 Reassessment: [facility] at bedside for transport of pt to [facility]. Pt is bb A\\T\\O x 4, ambulatory with steady gait, resp unlabored, IV site to left forearm intact with no erythema or edema noted. Vital Signs: 14:51 BP 92 / 46; Pulse 108; Resp 18; Temp 99.3(O); Pulse Ox 99% on R/A; Pain 10/10; ll1 15:35 Weight 81.65 kg; ld1 15:47 BP 108 / 89; Pulse 91; Resp 18; Pulse Ox 100% on R/A; ph 18:42 BP 117 / 50; Pulse 78; Resp 18; Pulse Ox 100% on R/A; ph 22:35 BP 125 / 55; Pulse 81; Resp 18; Pulse Ox 99% on R/A; kd3 ED Course: 14:13 Patient arrived in ED. mr 14:57 Triage completed. ll1 15:01 David Luna MD is Attending Physician. larry 15:14 Inserted saline lock: 20 gauge in left forearm, using aseptic technique. Blood tp1 collected. 15:43 Arm band placed on Patient placed in an exam room, on a stretcher. ph 15:46 Patient has correct armband on for positive identification. Bed in low position. Call ph light in reach. Side rails up X2. Client placed on continuous cardiac and pulse oximetry monitoring. NIBP monitoring applied. 16:27 Haroldo Webb MD is Hospitalizing Provider. larry 16:42 CT Abd/Pelvis - IV Contrast Only In Process Unspecified. EDMS 16:56 XRAY Chest (1 view) In Process Unspecified. EDMS 16:59 Type And Screen Sent. ld1 17:23 Nani Arreola, CONNIE is Primary Nurse. ld1 17:30 initiated transfer to [facility]. bd 17:52 SARS-COV-2 RT PCR (Document "Date of Onset" if Symptomatic) Sent. ld1 18:16 initiated transfer to [facility], as requested by pt. pt accepted in transfer to [facility] by dr Hogan, admin approval given by Donna Herbert. 22:31 No provider procedures requiring assistance completed. Patient transferred, IV remains kd3 in place. Administered Medications: 15:56 Drug: Pepcid (famotidine) 20 mg Route: IVP; Site: left antecubital; ld1 22:33 Follow up: Response: No adverse reaction kd3 15:56 Drug: Zosyn (piperacillin-tazobactam) 3.375 grams Route: IVPB; Infused Over: 60 mins; ld1 Site: left antecubital; 22:33 Follow up: Response: No adverse reaction; IV Status: Completed infusion kd3 15:56 Drug: fentaNYL (PF) 25 mcg Route: IVP; Site: left antecubital; ld1 22:32 Follow up: Response: No adverse reaction kd3 15:56 Drug: Zofran (Ondansetron) 4 mg Route: IVP; Site: left antecubital; ld1 22:32 Follow up: Response: No adverse reaction kd3 15:57 Drug: NS 0.9% (30 ml/kg) 30 ml/kg Route: IV; Rate: bolus; Site: left antecubital; ld1 22:33 Follow up: Response: No adverse reaction; IV Status: Completed infusion kd3 17:10 Drug: Mucomyst - Acetylcysteine 600 mg Route: PO; ld1 22:32 Follow up: Response: No adverse reaction kd3 17:23 Drug: fentaNYL (PF) 25 mcg Route: IVP; Site: left antecubital; ld1 22:33 Follow up: Response: No adverse reaction kd3 22:33 Follow up: Response: Pain is decreased kd3 Medication: 15:46 VIS not applicable for this client. ph Outcome: 16:30 Decision to Hospitalize by Provider. larry 17:13 ER care complete, transfer ordered by . larry 22:31 Transferred by ground EMS kd3 22:31 Condition: stable 22:31 Discharge instructions given to patient, Instructed on the need for transfer, Demonstrated understanding of instructions, Prescriptions given X 22:34 Patient left the ED. bb Signatures: Dispatcher [employer] EDMS Maranda Lal Corey, MD MD cha Rivera, Gabriela mr LuisApurva, Franci Yusuf RN, RN RN ph Lewis, Lynsay, RN RN 1 Nani Arreola RN RN ld1 Hui Burnett RN RN kd3 Lucy Parrish [facility]
--- NOTE | 2021-12-30 16:31 | EDPHYS ---
Physician Documentation [facility] Name: German Arnold Age: 71 yrs Sex: Male : 1950 Arrival Date: 12/30/2021 Time: 14:13 Bed 5 Private MD: ED Physician David Luna HPI: 12/30 15:32 This 71 yrs old Black Male presents to ER via Wheelchair with complaints of Passed Out larry Prior To Arrival. 15:32 The patient has experienced syncope. Onset: The symptoms/episode began/occurred just larry prior to arrival. 15:32 The patient presents with abdominal pain in the upper abdomen, in the lower abdomen, larry abdominal distention in the upper abdomen, in the lower abdomen. Onset: The symptoms/episode began/occurred 2 day(s) ago. Duration: This was a single episode, that is still ongoing. Context: the episode(s) was witnessed, by family, . The symptoms do not radiate. Associated signs and symptoms: Pertinent positives: nausea. Modifying factors: The symptoms are alleviated by nothing, the symptoms are aggravated by nothing. Historical: - Allergies: 14:57 No Known Allergies; ll1 - PMHx: 14:57 Gout; Hypercholesterolemia; Hypertensive disorder; Hypothyroidism; cancer of colon; ll1 - Immunization history:: Adult Immunizations up to date. - Family history:: not pertinent. - Social history:: Smoking status: Patient denies any tobacco usage or history of. ROS: 15:32 Constitutional: Negative for fever, chills, and weight loss, Eyes: Negative for injury, larry pain, redness, and discharge, ENT: Negative for injury, pain, and discharge, Neck: Negative for injury, pain, and swelling, Cardiovascular: Negative for chest pain, palpitations, and edema, Respiratory: Negative for shortness of breath, cough, wheezing, and pleuritic chest pain, Back: Negative for injury and pain, : Negative for injury, bleeding, discharge, and swelling, MS/Extremity: Negative for injury and deformity, Skin: Negative for injury, rash, and discoloration, Neuro: Negative for headache, weakness, numbness, tingling, and seizure, Psych: Negative for depression, anxiety, suicide ideation, homicidal ideation, and hallucinations, Allergy/Immunology: Negative for hives, rash, and allergies, Endocrine: Negative for neck swelling, polydipsia, polyuria, polyphagia, and marked weight changes, Hematologic/Lymphatic: Negative for swollen nodes, abnormal bleeding, and unusual bruising. 15:32 Abdomen/GI: Positive for abdominal pain, of the right lower quadrant and left lower quadrant. Exam: 15:32 Constitutional: This is a well developed, well nourished patient who is awake, alert, larry and in no acute distress. Head/Face: Normocephalic, atraumatic. Eyes: Pupils equal round and reactive to light, extra-ocular motions intact. Lids and lashes normal. Conjunctiva and sclera are non-icteric and not injected. Cornea within normal limits. Periorbital areas with no swelling, redness, or edema. ENT: Nares patent. No nasal discharge, no septal abnormalities noted. Tympanic membranes are normal and external auditory canals are clear. Oropharynx with no redness, swelling, or masses, exudates, or evidence of obstruction, uvula midline. Mucous membranes moist. Neck: Trachea midline, no thyromegaly or masses palpated, and no cervical lymphadenopathy. Supple, full range of motion without nuchal rigidity, or vertebral point tenderness. No Meningismus. Chest/axilla: Normal chest wall appearance and motion. Nontender with no deformity. No lesions are appreciated. Cardiovascular: Regular rate and rhythm with a normal S1 and S2. No gallops, murmurs, or rubs. Normal PMI, no JVD. No pulse deficits. Respiratory: Lungs have equal breath sounds bilaterally, clear to auscultation and percussion. No rales, rhonchi or wheezes noted. No increased work of breathing, no retractions or nasal flaring. Back: No spinal tenderness. No costovertebral tenderness. Full range of motion. Male : Normal genitalia with no discharge or lesions. Skin: Warm, dry with normal turgor. Normal color with no rashes, no lesions, and no evidence of cellulitis. MS/ Extremity: Pulses equal, no cyanosis. Neurovascular intact. Full, normal range of motion. Neuro: Awake and alert, GCS 15, oriented to person, place, time, and situation. Cranial nerves II-XII grossly intact. Motor strength 5/5 in all extremities. Sensory grossly intact. Cerebellar exam normal. Normal gait. Psych: Awake, alert, with orientation to person, place and time. Behavior, mood, and affect are within normal limits. 15:32 Abdomen/GI: Inspection: distension, Bowel sounds: normal, Palpation: moderate abdominal tenderness, in the umbilical area, right lower quadrant and left lower quadrant, Liver: no appreciated palpable abnormalities, Hernia: not appreciated. Vital Signs: 14:51 BP 92 / 46; Pulse 108; Resp 18; Temp 99.3(O); Pulse Ox 99% on R/A; Pain 10/10; ll1 15:35 Weight 81.65 kg; ld1 15:47 BP 108 / 89; Pulse 91; Resp 18; Pulse Ox 100% on R/A; ph 18:42 BP 117 / 50; Pulse 78; Resp 18; Pulse Ox 100% on R/A; ph 22:35 BP 125 / 55; Pulse 81; Resp 18; Pulse Ox 99% on R/A; kd3 MDM: 15:02 Patient medically screened. larry 15:36 Differential Diagnosis: cardiac arrhythmia, GI bleed, vasovagal episode. Differential larry diagnosis: bowel obstruction, cholecystitis, Cholelithiasis, diverticulitis, gastritis, gastroesophageal reflux disease, Hepatitis, non-specific abd pain, pancreatitis, Peptic Ulcer Disease, Ureterolithiasis, urinary tract infection. Data reviewed: vital signs, nurses notes, lab test result(s), EKG, radiologic studies, CT scan, plain films. Data interpreted: patient monitor: rate is 108 beats/min, rhythm is regular, Pulse oximetry: on room air is 99 %. Test interpretation: by ED physician or midlevel provider: ECG, plain radiologic studies. Counseling: I had a detailed discussion with the patient and/or guardian regarding: the historical points, exam findings, and any diagnostic results supporting the discharge/admit diagnosis, lab results, radiology results. 17:59 ED course: Dr Alegria , no ng tube , transfer, needs colorectal. larry 18:11 ED course: pt wants to go to [facility], does not want to go to [facility] [place]!!!!. [facility] 12/30 15:32 Order name: Basic Metabolic Panel; Complete Time: 16:09 larry 12/30 15:32 Order name: CBC with Diff [facility] 12/30 15:32 Order name: LFT's; Complete Time: 16:09 [facility] 12/30 15:32 Order name: Magnesium; Complete Time: 16:09 [facility] 12/30 15:32 Order name: NT PRO-BNP; Complete Time: 16:09 [facility] 12/30 15:32 Order name: PT-INR; Complete Time: 16:09 [facility] 12/30 15:32 Order name: Troponin HS; Complete Time: 16:09 [facility] 12/30 15:32 Order name: XRAY Chest (1 view); Complete Time: 17:29 [facility] 12/30 15:32 Order name: Lipase; Complete Time: 16:09 [facility] 12/30 15:32 Order name: Lactate; Complete Time: 16:23 [facility] 12/30 16:09 Order name: Type And Screen [facility] 12/30 16:49 Order name: Manual Differential EDMS 12/30 17:29 Order name: SARS-COV-2 RT PCR (Document "Date of Onset" if Symptomatic) [facility] 12/30 20:19 Order name: Urine Dipstick-Ancillary EDMS 12/30 15:32 Order name: EKG; Complete Time: 15:32 [facility] 12/30 15:32 Order name: Cardiac monitoring; Complete Time: 15:34 [facility] 12/30 15:32 Order name: EKG - Nurse/Tech; Complete Time: 15:34 [facility] 12/30 15:32 Order name: IV Saline Lock; Complete Time: 15:34 [facility] 12/30 15:32 Order name: Labs collected and sent; Complete Time: 15:57 [facility] 12/30 15:32 Order name: O2 Per Protocol; Complete Time: 15:35 [facility] 12/30 15:32 Order name: O2 Sat Monitoring; Complete Time: 15:35 [facility] 12/30 15:32 Order name: Urine Dipstick-Ancillary (obtain specimen); Complete Time: 21:14 [facility] 12/30 15:32 Order name: CT Abd/Pelvis - IV Contrast Only; Complete Time: 17:29 [facility] 12/30 17:05 Order name: Labs - recollect needed: recollect type and screen, constantino pt. ; Complete bd Time: 17:23 Administered Medications: 15:56 Drug: Pepcid (famotidine) 20 mg Route: IVP; Site: left antecubital; ld1 22:33 Follow up: Response: No adverse reaction kd3 15:56 Drug: Zosyn (piperacillin-tazobactam) 3.375 grams Route: IVPB; Infused Over: 60 mins; ld1 Site: left antecubital; 22:33 Follow up: Response: No adverse reaction; IV Status: Completed infusion kd3 15:56 Drug: fentaNYL (PF) 25 mcg Route: IVP; Site: left antecubital; ld1 22:32 Follow up: Response: No adverse reaction kd3 15:56 Drug: Zofran (Ondansetron) 4 mg Route: IVP; Site: left antecubital; ld1 22:32 Follow up: Response: No adverse reaction kd3 15:57 Drug: NS 0.9% (30 ml/kg) 30 ml/kg Route: IV; Rate: bolus; Site: left antecubital; ld1 22:33 Follow up: Response: No adverse reaction; IV Status: Completed infusion kd3 17:10 Drug: Mucomyst - Acetylcysteine 600 mg Route: PO; ld1 22:32 Follow up: Response: No adverse reaction kd3 17:23 Drug: fentaNYL (PF) 25 mcg Route: IVP; Site: left antecubital; ld1 22:33 Follow up: Response: No adverse reaction kd3 22:33 Follow up: Response: Pain is decreased kd3 Disposition Summary: 12/30/21 17:13 Transfer Ordered Transfer Location: [facility] larry Reason: Higher level of care larry Condition: Fair(12/30/21 17:13) larry Problem: new(12/30/21 17:13) larry Symptoms: have improved(12/30/21 17:13) larry Accepting Physician: TO [facility](12/30/21 22:34) bb Diagnosis - Abdominal pain, Generalized(12/30/21 17:13) larry - Malignant neoplasm of colon, unspecified(12/30/21 17:13) larry - Neutropenia, unspecified(12/30/21 17:13) larry - Other intestinal obstruction - MECHANICAL PARTIAL SBO(12/30/21 17:13) larry - Anemia, unspecified larry - Hypokalemia larry Forms: - Medication Reconciliation Form larry - SBAR form laryr Signatures: Dispatcher [employer] EDMaranda Kerr Corey, MD MD cha Ballard, Brenda, RN RN bb Hall, Patricia, RN RN ph Lewis, Lynsay RN RN ll1 Nani Arreola RN RN ld1 Hui Burnett RN kd3 Corrections: (The following items were deleted from the chart) 17: 16:30 Inpatient Admission larry larry 17: 16:30 Haroldo Webb larry larry : 16:30 Telemetry/MedSurg (Inpatient) larry larry 17: 16:30 Guarded larry larry 17: 16:30 new larry larry 17: 16:30 have improved larry larry 17: 16:30 Standard larry larry 17: 16:30 larry larry 17: 16:30 Abdominal pain, Generalized larry larry 17: 16:30 Hypotension, unspecified larry larry : 16:30 Malignant neoplasm of colon, unspecified - on Chemo larry larry : 16:30 Neutropenia, unspecified larry larry 17: 16:59 Other intestinal obstruction - partial Mechanial SBO larry larry 17:30 17:13 TO [facility] larry larry 22:34 17:30 TO [facility] larry bb
[2021-12-30 16:48] LABS: Anisocytosis 1+; Blood Morphology Comment NOTED (NOT SEEN); Platelet Estimate ADEQ
--- NOTE | 2021-12-30 16:54 | RAD REPORT ---
EXAM DESCRIPTION: CTAbdomen Pelvis W Contrast - 12/30/2021 4:40 pm CLINICAL HISTORY: Abdominal pain. Abdominal pain, acute, nonlocalized COMPARISON: Abdomen Pelvis W Contrast dated 12/28/2021; Abdomen Pelvis W Contrast dated TECHNIQUE: Biphasic CT imaging of the abdomen and pelvis was performed with 100 ml non-ionic IV cont rast. All CT scans are performed using dose optimization technique as appropriate and may include automated exposure control or mA/KV adjustment according to patient size. FINDINGS: The lung bases are clear. The liver, spleen, pancreas, adrenal glands and kidneys are within normal limits. Cholelithiasis. Irregular mass is suspected involving the transverse colon along the right flank region (image 32/102 ). This appears to result in fluid distention of the colon and partial mechanical small-bowel obstruc tion. The appendix is normal. No evidence of significant lymphadenopathy. No suspicious bony findings. IMPRESSION: Irregular mass in the transverse colon right upper quadrant region is probably malignanc y. There is associated fluid filled dilatation of the colon in a partial mechanical small-bowel obstr uction. Colonoscopy would be recommended if not recently performed.
--- NOTE | 2021-12-30 17:01 | RAD REPORT ---
EXAM DESCRIPTION: RAD - Chest Single View - 12/30/2021 4:54 pm CLINICAL HISTORY: ABDOMINAL DISTENTION Chest pain. COMPARISON: Chest Single View dated 09/02/2021; Chest Single View dated 08/10/2021 FINDINGS: Portable technique limits examination quality. The lungs are grossly clear. The heart is normal in size. No displaced fractures. IMPRESSION: No acute intrathoracic process suspected.
[2021-12-30] MEDS ORDERED: ACETYLCYST 6,000 MG/30 ML VIAL ONE (17:09)
[2021-12-30] MEDS ORDERED: carvediloL 6.25 MG TAB ONE (18:09)
[2021-12-30 20:19] LABS: Urine Blood Negative (Negative); Urine Glucose Negative (Negative); Urine Protein Negative (Negative)
[2021-12-30 22:53] VITALS: TEMP 99.3
[2021-12-30 22:55] VITALS: O2SAT 100
[2021-12-30 22:57] VITALS: BP 117/50
--- NOTE | 2021-12-31 09:34 | EKG ---
Test Date: 2021-12-30 Test Time: 14:56:27 [employer] Analyst: DESHAWN MEASUREMENT RESULTS: Intervals: Rate: 108 VA: 148 QRSD: 80 QT: 314 QTc: 420 [place]: P: 84 VA: 148 QRS: 67 T: 81 INTERPRETIVE STATEMENTS: Sinus tachycardia Otherwise normal ECG Compared to ECG 08/10/2021 17:00:32 Sinus rhythm no longer present Left ventricular hypertrophy no longer present Electronically Signed On 12-31-21 09:32:19 CDT by Rich Hogan
== END 2021-12-30 22:34 | disposition short-term general hospital (02) ==
LOC: ER 14:10
DX: K56.609 Unspecified intestinal obstruction, unspecified as to partial versus complete obstruction (principal); C18.9 Malignant neoplasm of colon, unspecified; D64.9 Anemia, unspecified; E87.6 Hypokalemia; D70.9 Neutropenia, unspecified; I10 Essential (primary) hypertension; E78.00 Pure hypercholesterolemia, unspecified; E03.9 Hypothyroidism, unspecified; R10.9 Unspecified abdominal pain; Z20.822 Contact with and (suspected) exposure to COVID-19
CPT/HCPCS: 96365; 93005; 85025; 80048; 36415; 86900; 83735; 86850; 85610; 86901; 80076; 83605; 81003; 84484; 83690; 83880; 74177; 71045; 96375; 99285; 96366; U0003; Q9967; J2543; J3010; J7030 ×2; J2405; J3490